=== PATIENT | male | born 1960 | race Caucasian/White ===

== ENCOUNTER 2021-01-09 19:39 | Emergency (ER) | payer OTHER, SELFPAY ==
--- NOTE | ~2021-01-09 | XR_ITS ---
XR elbow RT min 3V DATE: 01/09/2021 20:03 INDICATION: Right elbow injury. Olecranon pain. TECHNIQUE: 4 views COMPARISON: None FINDINGS: There is proximal displacement of avulsed fracture of large olecranon process dorsal spur, with overlying soft tissue swelling. IMPRESSION: Dorsally avulsed olecranon process spur fracture Reviewed, dictated and finalized at location A.
[2021-01-09 19:44] VITALS: BP 133/100; PULSE 67; RESP 16; TEMP 36.8; O2SAT 100
--- NOTE | 2021-01-09 19:56 | ED.UPPEXIN ---
HPI - Extremity Injury (Upper) General Chief Complaint: Extremity Injury, Upper Stated Complaint: right elbow injury Time Seen by Provider: 01/09/21 19:48 History of Present Illness HPI narrative: Right elbow injury. He reports that he was pulling hard when he heard a loud pop from his right elbow. He now has severe pain at the insertion of the triceps tendon. Exacerbated by any movement, extension is worse. No weakness, numbness, wound. Related Data Home Medications Medication Instructions Recorded Confirmed rizatriptan 10 mg tablet See Rx Instructions PO .COMPLEX 02/09/20 Allergies Allergy/AdvReac Type Severity Reaction Status Date / Time Penicillins AdvReac Severe Unknown Verified 12/20/20 11:08 Review of Systems Review of Systems: All systems reviewed & are unremarkable except as noted in HPI and below Constitutional: Constitutional: Denies fever(s) Cardiovascular: Cardiovascular: Denies chest pain Respiratory: Respiratory: Denies dyspnea Musculoskeletal: Musculoskeletal: Denies back pain Neurologic: Denies numbness and Denies weakness PMFSH Past Medical History Medical History Hyperlipidemia Hypertension Migraine Thyroid cancer Surgical History Surgical History H/O thyroidectomy History of lumbar laminectomy Hx of left inguinal hernia repair Social History Social History Smoking status: Never smoker Alcohol intake: current Exam Const: General: healthy appearing, no acute distress and alert Orientation/consciousness: patient oriented x3 HENMT: Head: normal to inspection Neck: Neck: normal visual inspection and no lymphadenopathy Chest: Chest palpation & inspection: no tenderness Resp: Effort & Inspection: normal respiratory effort Cardio: Jugular venous distension: no JVD Other: 2 + right radial Skin: General skin exam: normal color Wounds: no wounds Neuro: General: patient oriented x3, moves all extremities and no focal motor deficits Speech: normal speech Extrem: General: no edema Other: swelling and possible bony deformity over insertion of right triceps tendon Psych: Appearance: well kempt Affect: normal affect Course Vital Signs Vital signs: Vital Signs Temperature 36.8 C 01/09/21 19:44 Pulse Rate 67 01/09/21 19:44 Respiratory Rate 16 01/09/21 19:44 Blood Pressure 133/100 H 01/09/21 19:44 Pulse Oximetry 100 01/09/21 19:44 Temperature 36.7 C 01/09/21 20:40 Pulse Rate 80 01/09/21 20:40 Respiratory Rate 20 01/09/21 20:40 Blood Pressure 122/84 01/09/21 20:40 Pulse Oximetry 98 01/09/21 20:40 MDM - Extremity Injury (Upper) MDM Narrative Medical decision making narrative: Fracture of olecranon process spur. Treatment will be symptomatic. PCP follow-up should be sufficient. Medical Records Attestation: I reviewed the patient's medical records. Imaging Data Radiologist's impression: ITS Impressions Elbow X-Ray 01/09/21 20:05 IMPRESSION: Dorsally avulsed olecranon process spur fracture Discharge Plan Discharge Clinical Impression: Fracture of olecranon process, right, closed Qualifiers: Encounter type: initial encounter Qualified Code(s): S52.021A - Displaced fracture of olecranon process without intraarticular extension of right ulna, initial encounter for closed fracture Patient Disposition: Home, Self-Care Condition: Stable Instructions: Elbow Fracture (ED) Prescriptions: New hydrocodone-acetaminophen 5-325 mg tablet 1 tablet PO Q6H PRN (Reason: pain) Qty: 14 RF: 0 hydrocodone-acetaminophen 5-325 mg tablet 1 tablet PO Q6H PRN (Reason: pain) Qty: 14 RF: 0 No Action rizatriptan 10 mg tablet See Rx Instructions PO .COMPLEX RF: 0 levothyroxine 175 mcg capsule 175 mcg PO DAILY Qty: 90 RF: 2
[2021-01-09] MEDS: HYDROcodone/acetaminophen (*CRX) 5-325 MG TABLET 1 TAB PO (20:09)
[2021-01-09] MEDS: IBUPROFEN 600 MG TABLET PO (20:09)
[2021-01-09 20:40] VITALS: BP 122/84; PULSE 80; RESP 20; TEMP 36.7; O2SAT 98
== END 2021-01-09 20:41 | disposition home or self-care (01) ==
PROVIDERS: Emergency Provider Emergency Medicine; PCP Family Medicine
DX: S52.021A Displaced fracture of olecranon process without intraarticular extension of right ulna, initial encounter for closed fracture (principal); E78.5 Hyperlipidemia, unspecified; I10 Essential (primary) hypertension; Z85.850 Personal history of malignant neoplasm of thyroid; E89.0 Postprocedural hypothyroidism; X50.9XXA Other and unspecified overexertion or strenuous movements or postures, initial encounter
CPT/HCPCS: 73080; 99283; A4565; A9270

== ENCOUNTER 2021-01-10 12:21 | Emergency (ER) | payer OTHER, SELFPAY ==
[2021-01-10 12:57] VITALS: BP 148/96; PULSE 71; RESP 16; TEMP 36.4; O2SAT 99
--- NOTE | 2021-01-10 14:09 | PC.NURSE ---
Patient states his PCP is able to get him a work note today and is leaving. Patient educated to return to ED if symptoms worsen.
== END 2021-01-10 14:09 | disposition left against medical advice (07) ==
PROVIDERS: PCP Family Medicine
DX: Z53.21 Procedure and treatment not carried out due to patient leaving prior to being seen by health care provider (principal)
CPT/HCPCS: 99199

== ENCOUNTER 2021-01-22 01:33 | Day surgery (SDC) | payer OTHER, SELFPAY ==
[2021-01-21 14:06] VITALS: BMI 23.6
[2021-01-22] VITALS (7 sets, daily range): BP systolic 92–134; BP diastolic 62–87; PULSE 55–69; RESP 9–16; TEMP 36.4; O2SAT 98–100
--- NOTE | 2021-01-22 05:59 | ECG_ITS ---
Measurements Intervals [place] Rate: 55 P: 51 ME: 177 QRS: 47 QRSD: 91 T: 63 QT: 404 QTc: 388 Interpretive Statements SINUS BRADYCARDIA BORDERLINE ECG Electronically Signed On 01-22-2021 8:29:02 CDT by Oral Chambers D.O.
--- NOTE | 2021-01-22 07:22 | WPDANESEPPF ---
Anes - Initial Pre Proc Eval Procedure: Operation Date: 01/22/21 08:00 Proposed Procedures p Open Triceps Right Tendon Repair - Arnoldo Arguelles MD Date/Time: 01/22/21 07:22 Surgeon: Arnoldo Arguelles MD Pre Op Diagnosis: Right triceps tendon Rupture Patient Data Age: 61 Gender: M Height: 1.83 m Weight: 79 kg Allergies Allergy/AdvReac Type Severity Reaction Status Date / Time Penicillins Allergy Severe IRRITATION/SWELLING Verified 01/21/21 13:58 IN THROAT Home Medications Medication Instructions Recorded Confirmed Type rizatriptan 10 mg tablet See Rx Instructions PO .COMPLEX 02/09/20 01/21/21 History meloxicam 15 mg tablet 15 mg PO DAILY #30 tablet 11/30/20 01/21/21 Rx triamterene 75 1 tablet PO QAM #45 tablet 12/02/20 01/21/21 Rx mg-hydrochlorothiazide 50 mg tablet montelukast 10 mg tablet 10 mg PO DAILY #30 tablet 12/24/20 01/21/21 Rx oxycodone-acetaminophen 5 mg-325 1 - 2 tablet PO Q4-6H PRN #30 01/15/21 01/21/21 Rx mg tablet tablet buspirone 10 mg PO TID 01/21/21 01/21/21 History levothyroxine 175 mcg PO QAM 01/21/21 01/21/21 History propranolol 80 mg PO BID 01/21/21 01/21/21 History simvastatin 40 mg PO HS 01/21/21 01/21/21 History Patient hx anesthesia problems: none Family hx anesthesia problems: none [facility] Past Medical History Medical History Hyperlipidemia Hypertension Migraine Thyroid cancer Surgical History Surgical History H/O thyroidectomy History of lumbar laminectomy Hx of left inguinal hernia repair Family History Family History (Updated 01/17/21 @ 08:43 by Kathrine Gaviria) Father Heart disease COPD (chronic obstructive pulmonary disease) Mother Age related osteoporosis Grandparent Cerebrovascular accident Grandparent Heart disease Social History Social History (Updated 01/17/21 @ 08:44 by Kathrine Gaviria) Smoking status: Never smoker Alcohol intake: current Drinks per week: 3 Substance use: never Living arrangements: with family Additional living arrangements comments: Spiritual care concerns: No Anes - Eval Final PreProcedure Day of Procedure 01/22/21 07:22 Patient weight: overweight Heart: regular rate and rhythm Lungs: clear to auscultation Airway: Mallampati scale Neurological: alert and oriented ASA classification: III Emergent: no Anesthetic plan: proceed Anesthesia type and monitoring: general ETT and standard monitoring Informed Consent: The patient's anesthetic plan and its attendant risks and benefits were discussed with the patient/family/POA. Questions were solicited and answers provided to the satisfaction of the patient/family/POA.
[2021-01-22] MEDS: ACETAMINOPHEN 500 MG TABLET 1000 MG PO (07:27)
[2021-01-22] MEDS: KETOROLAC 15 MG/ML VIAL (*BKC) IV PUSH (07:28)
[2021-01-22] MEDS: LACTATED RINGERS 1,000 ML 30 ML IV CONT ×2 (07:30→09:21)
--- NOTE | 2021-01-22 07:37 | WPDHPUPDATE1 ---
History and Physical Update Update Date/Time: 01/22/21 07:37 PLAN: Proceed with open right triceps tendon repair. History and Physical has been reviewed, including an updated exam of the patient. There are NO changes in the patient's condition. Risks, benefits, and alternatives have been discussed and questions answered. Patient agrees to proceed with procedure.
[2021-01-22] MEDS: ceFAZolin 2 GM/D5W 50 ML 2 GM/50 ML BAG IVPB (07:49)
[2021-01-22 07:53] LABS: Anion Gap 7 mmol/L (8-16); Blood Urea Nitrogen 25 mg/dL (9-20); Calcium 8.8 mg/dL (8.4-10.2); Carbon Dioxide 26 mmol/L (22-30); Chloride 106 mmol/L (98-107); Estimated CRCL calculation 82 ml/min; Estimated Glomerular Filt Rate > 60; Glucose 86 mg/dL (75-110); Sodium 139 mmol/L (137-145)
[2021-01-22] MEDS: BUPIVACAINE HCL 0.5% PF 30 ML VIAL INFILTRATE (08:25)
--- NOTE | 2021-01-22 09:06 | W.PM.PROC2 ---
Procedure Note - Detailed Date of Procedure 01/22/21 Pre-op Diagnosis Right triceps tendon Rupture Post-op Diagnosis same Procedure Performed Triceps tendon repair, right elbow. Surgeon Arnoldo Arguelles MD Anesthesia general Indications Acute traumatic rupture. Findings Large bone fragment. Amenable for screw fixation, with suture augmentation through bone tunnels. Rigid, anatomic fixation. Description of Procedure Preoperative antibiotics were given. General anesthetic administered. The patient was carefully placed in the lateral decubitus position. The arm was prepped and draped in the usual sterile fashion. Well-padded tourniquet high on the arm. The limb was exsanguinated the tourniquet inflated to 250 mmHg. A longitudinal incision was created over the posterior olecranon slightly lateral. The area of triceps disruption was dissected deep to the bursa. The trever T9 and subcutaneous tissue layers were carefully preserved for later repair. A large fragment of distal olecranon bone remained attached to the central tendon. Near anatomic reduction was possible. The bony surfaces were prepared for repair. Crossing drill tunnels were created and the suture limbs will then. The 2. FiberWire was brought up the medial side with a Krackow stitch and down the lateral side. The tendon was reduced. Bone fragment was anatomically positioned and a K-wire placed across the fracture site. Care was taken to avoid the tunnels. The partially-threaded cannulated screw 4.0 mm was drilled and placed over the guidewire. Excellent compression was obtained. The suture repair was finalized with nice supportive compression of the tendon medially and laterally. The tourniquet was released. Meticulous hemostasis obtained. The deep layers were carefully repaired with absorbable suture. Running 4 Monocryl suture was used subcuticular. Steri-Strips applied. Posterior splint with padding and light compression was placed. The patient was extubated and brought to the recovery room in stable condition. There were no complications. Implants Synthes 4.0 cannulated screw, 32 mm. Estimated Blood Loss 5 Tourniquet Time 48 Pathology none sent Complications No immediate complications Condition stable Disposition PACU
--- NOTE | 2021-01-22 10:15 | SUR.PHASEII ---
RN called Dr. Arguelles's office to request the discharge order.
--- NOTE | 2021-01-22 10:22 | SUR.PHASEII ---
Spoke w/ Pharmacy and prescription for Percocet was filled on 01/15/21. RN told patient to call Dr. Arguelles's office for more medicine if needed when gets close to running out.
[2021-01-22] MEDS: oxyCODONE HCL (*CRX) 5 MG TAB IR PO (10:30)
--- NOTE | 2021-01-22 11:18 | SUR.PHASEII ---
When patient used the bathroom at discharge he heard his RIGHT arm pop. He said it didn't hurt anymore than it did previously. RN will make Dr. Arguelles's office aware.
== END 2021-01-22 11:12 | disposition home or self-care (01) ==
PROVIDERS: Anesthesiology; PCP Family Medicine; Visit Provider Orthopaedic Surgery
PROC: (CPT 24341; principal; 2021-01-22 08:00)
DX: S46.311A Strain of muscle, fascia and tendon of triceps, right arm, initial encounter (principal); I10 Essential (primary) hypertension; E78.5 Hyperlipidemia, unspecified; E89.0 Postprocedural hypothyroidism; Z85.850 Personal history of malignant neoplasm of thyroid; X58.XXXA Exposure to other specified factors, initial encounter
CPT/HCPCS: 24342; 36415; 80048; 93005; A9270; C1713; C1769; J0690; J1100; J1885; J2250; J2370; J2405; J2704; J3010; J7120

== ENCOUNTER 2021-01-25 12:40 | Emergency (ER) | payer OTHER, SELFPAY ==
--- NOTE | ~2021-01-25 | XR_ITS ---
EXAMINATION: XR chest 2V DATE: 01/25/2021 14:02 INDICATION: Cough and shortness of breath TECHNIQUE: PA and lateral views of the chest are obtained. COMPARISON: None available FINDINGS: The lungs are free of acute opacities. There is no pleural effusion or pneumothorax. The ca rdiomediastinal silhouette is normal. There is mild thoracic spondylosis. IMPRESSION: 1. No acute cardiopulmonary abnormality. Reviewed, dictated and finalized at location A.
[2021-01-25 12:44] VITALS: BP 147/83; PULSE 63; RESP 20; TEMP 36.6; O2SAT 100
[2021-01-25 13:42] VITALS: BP 153/84; PULSE 62; RESP 22; TEMP 36.3; O2SAT 98
[2021-01-25 13:43] VITALS: PULSE 67; RESP 12
--- NOTE | 2021-01-25 13:53 | ECG_ITS ---
Measurements Intervals [place] Rate: 67 P: 27 FL: 156 QRS: 21 QRSD: 88 T: 24 QT: 377 QTc: 401 Interpretive Statements SINUS RHYTHM EARLY PRECORDIAL R/S TRANSITION BASELINE ARTIFACT- I, II, III, AVR, AVL, AVF BORDERLINE ECG Electronically Signed On 01-25-2021 20:55:18 CDT by Oral Chambers D.O.
--- NOTE | 2021-01-25 13:54 | ED.GENADULT ---
HPI - General Adult General Chief complaint: Unspecified Stated complaint: increased urination, hot flashes Time Seen by Provider: 01/25/21 13:39 Source: patient Mode of arrival: ambulatory Limitations: no limitations History of Present Illness HPI narrative: Patient is a 61-year-old male complaining of I do not feel well, I feel anxious, sometimes I cannot take a deep breath, woke up this morning and I cannot sit still , also complaining of increased urinary frequency and chills x1 day. 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 Patient denies any headache, dizziness, chest pain, shortness of breath, abdominal pain, nausea, vomiting, diarrhea or fever. Related Data Home Medications Medication Instructions Recorded Confirmed rizatriptan 10 mg tablet See Rx Instructions PO .COMPLEX 02/09/20 01/22/21 buspirone 10 mg PO TID 01/21/21 01/22/21 levothyroxine 175 mcg PO QAM 01/21/21 01/22/21 propranolol 80 mg PO BID 01/21/21 01/22/21 simvastatin 40 mg PO HS 01/21/21 01/22/21 Allergies Allergy/AdvReac Type Severity Reaction Status Date / Time Penicillins Allergy Severe IRRITATION/SWELLING Verified 01/22/21 08:23 IN THROAT Review of Systems Review of Systems: All systems reviewed & are unremarkable except as noted in HPI and below Constitutional: Constitutional: Denies body ache(s), Denies excessive sweating, Denies fatigue, Denies fever(s), Denies headache(s), Denies lethargy, Denies malaise, Denies weakness and Denies weight loss Eyes: Eyes: Denies blurry vision, Denies change in vision and Denies loss of vision ENT: Denies dizziness, Denies ear discharge, Denies headache(s), Denies lip swelling, Denies epistaxis, Denies nasal congestion, Denies neck pain, Denies throat swelling and Denies tongue swelling Cardiovascular: Cardiovascular: Denies chest pain, Denies chest pain at rest, Denies chest pain with activity, Denies diaphoresis, Denies rapid heart rate, Denies edema, Denies irregular heart rhythm, Denies lightheadedness, Denies palpitations, Denies dyspnea and Denies dyspnea on exertion Respiratory: Respiratory: Denies chest congestion, Denies cough, Denies hemoptysis, Denies dyspnea and Denies dyspnea on exertion Gastrointestinal: Gastrointestinal: Denies abdominal pain, Denies melena, Denies hematochezia, Denies diarrhea, Denies nausea, Denies vomiting and Denies hematemesis Musculoskeletal: Musculoskeletal: Denies abnormal gait, Denies deformity, Denies joint swelling, Denies limited range of motion, Denies neck pain and Denies numbness Neurologic: Denies Abnormal speech present, Denies abnormal gait, Denies confusion, Denies dizziness, Denies headache(s), Denies focal weakness, Denies loss of vision, Denies numbness, Denies Other visual disturbances, Denies Sensory deficit (Neuro) and Denies weakness Psychiatric: Psychiatric: Denies confusion, Denies depression, Denies auditory hallucinations, Denies homicidal ideation and Denies suicidal ideation Endocrine: Endocrine: Denies cold intolerance, Denies excessive sweating, Denies fatigue, Denies heat intolerance and Denies palpitations Hematologic/Lymphatic: Hematologic/Lymphatic: Denies easy bleeding and Denies easy bruising Allergic/Immunologic: Allergic/Immunologic: Denies lip swelling, Denies throat swelling and Denies tongue swelling PMFSH Past Medical History Medical History Hyperlipidemia Hypertension Migraine Thyroid cancer Surgical History Surgical History H/O thyroidectomy History of lumbar laminectomy Hx of left inguinal hernia repair Family History Family History Father Heart disease COPD (chronic obstructive pulmonary disease) Mother Age related osteoporosis Grandparent Cerebrovascular accident
[2021-01-25 14:39] VITALS: BP 133/82; PULSE 64; RESP 14; TEMP 36.4; O2SAT 99
[2021-01-25] MEDS: LORazepam INJ (*CRX) 2 MG/ML VIAL 1 MG IV PUSH (15:00)
[2021-01-25 15:01] LABS: Basophils Percent Auto 0.2 % (0.2-1.2); Eosinophils Absolute Auto 0.1 K/mm3 (0-0.3); Eosinophils Percent Auto 0.7 % (0-4.4); Hematocrit 43.6 % (42.0-52.0); Hemoglobin 15.2 g/dL (14.0-18.0); Immature Granulocyte Absolute 0.05 K/mm3 (0.00-0.031); Immature Granulocyte Percent A 0.5 % (0-0.5); Lymphocytes Absolute Auto 1.07 K/mm3 (0.9-3.2); Lymphocytes Percent Auto 10.4 % (18.3-44.2); Mean Corpuscular HGB Conc 34.9 g/dl (32-36); Mean Corpuscular Hemoglobin 33.4 pg (26-34); Mean Corpuscular Volume 95.8 fl (80-100); Mean Platelet Volume 10.1 fl (7.4-10.4); Monocytes Absolute Auto 0.5 K/mm3 (0.1-0.6); Monocytes Percent Auto 5.3 % (2.6-8.5); Neutrophils Absolute Auto 8.5 K/mm3 (1.3-6.7); Neutrophils Percent Auto 82.9 % (45.5-73.1); Platelet Count Result 194 k/mm3 (150-375); Red Blood Count 4.55 M/mm3 (4.6-6.20); Red Cell Distribution Width 12.2 % (11.5-14.5); White Blood Count 10.3 K/mm3 (4.5-10.0)
[2021-01-25 15:05] LABS: Add Urine Microscopic? YES; Appearance Urine Clear (Clear); Bilirubin Urine Negative (Negative); Blood Urine Negative (Negative); Color Urine Straw (Yellow); Glucose Urine UA Negative (Negative); Ketones Urine Trace mg/dL (Negative); Leukocyte Esterase Ur Negative LEU/UL (Negative); Nitrate Urine Negative (Negative); Protein Urine Negative (Negative); RBC Urine 0-2 /hpf (0-2); Urobilinogen Urine Negative mg/dL (<2.0); WBC Urine 0-3 /hpf
[2021-01-25 15:10] LABS: Anion Gap 9 mmol/L (8-16); Blood Urea Nitrogen 15 mg/dL (9-20); Calcium 9.6 mg/dL (8.4-10.2); Carbon Dioxide 27 mmol/L (22-30); Chloride 102 mmol/L (98-107); Estimated CRCL calculation 91 ml/min; Estimated Glomerular Filt Rate > 60; Glucose 103 mg/dL (75-110); Potassium 4.2 mmol/L (3.4-5.0); Sodium 138 mmol/L (137-145)
[2021-01-25 15:22] LABS: Troponin I < 0.012 ng/mL (0.000-0.034)
[2021-01-25 15:37] LABS: D Dimer 0.27 ug/mL (<0.48)
[2021-01-25 16:43] VITALS: BP 133/87; PULSE 65; RESP 19; TEMP 36.7; O2SAT 96
[2021-01-25 17:15] VITALS: BP 118/85; PULSE 67; RESP 11; TEMP 36.6; O2SAT 97
== END 2021-01-25 17:33 | disposition home or self-care (01) ==
PROVIDERS: Emergency Provider Emergency Medicine; PCP Family Medicine
DX: F41.9 Anxiety disorder, unspecified (principal); I10 Essential (primary) hypertension; E78.5 Hyperlipidemia, unspecified; Z85.850 Personal history of malignant neoplasm of thyroid
CPT/HCPCS: 36415; 71046; 80048; 81001; 84484; 85025; 85380; 93005; 96374; 99284; J2060

== ENCOUNTER 2022-06-18 16:10 | Emergency (ER) | payer OTHER, SELFPAY ==
[2022-06-18 16:16] VITALS: BP 152/91; PULSE 60; RESP 16; TEMP 36.3; O2SAT 99
[2022-06-18] MEDS: HYDROcodone/acetaminophen (*CRX) 5-325 MG TABLET 1 TAB PO (17:06)
[2022-06-18] MEDS: CLINDAMYCIN HCL 150 MG CAP 450 MG PO (17:06)
--- NOTE | 2022-06-18 17:13 | ED.DENTAL ---
HPI - Dental/Oral General Chief complaint: Dental/Oral Stated complaint: dental pain Time Seen by Provider: 06/18/22 16:29 Source: patient Mode of arrival: ambulatory Limitations: no limitations History of Present Illness HPI Narrative: 62-year-old male presents today with complaints of left tooth pain that started yesterday. Patient states the pain is progressively gotten worse and he has tried Tylenol without any relief. Patient on meloxicam he cannot use any nonsteroidal anti-inflammatories. Patient denies any fever, body aches, chills. Patient states he is able to drink fluids without difficulty. Patient is able to eat chewing on the right side. Patient states ever since he had a tooth removed a couple years ago he has intermittently had issues with his left side. No swelling noted to the jaw. Related Data Home Medications Medication Instructions Recorded Confirmed fexofenadine 60 mg tablet (Franca 60 mg PO Q12H 06/25/21 01/27/22 Allergy) Allergies Allergy/AdvReac Type Severity Reaction Status Date / Time Penicillins Allergy Severe IRRITATION/SWELLING Verified 01/27/22 10:29 IN THROAT Review of Systems Review of Systems: CONSTITUTIONAL: Denies fever, chills, or sweats. EYES: Denies visual changes, redness, or discharge. ENT: Left lower pain. denies rhinorrhea, congestion, sore throat, or otalgia. CARDIOVASCULAR: Denies chest pain, palpitations, or edema. RESPIRATORY: Denies cough or dyspnea. GASTROINTESTINAL: Denies abdominal pain, nausea, vomiting, or diarrhea. PSYCHIATRIC: Denies anxiety or depression. [facility] Past Medical History Medical History Hyperlipidemia Hypertension Migraine Thyroid cancer Surgical History Surgical History H/O thyroidectomy History of lumbar laminectomy Hx of left inguinal hernia repair Family History Family History Father Heart disease COPD (chronic obstructive pulmonary disease) Mother Age related osteoporosis Grandparent Cerebrovascular accident Grandparent Heart disease Social History Social History Smoking status: Never smoker Alcohol intake: current Drinks per week: 3 Alcohol use details: 3-5 BEERS A WEEK Substance use: never Substance use type: does not use Additional living arrangements comments: Gender identity (if verbalized by the patient): Male Spiritual care concerns: No Exam Narrative: GENERAL: Well-appearing, well-nourished, and in no acute distress. HEAD: Normocephalic, atraumatic. EYES: PERRLA and EOMI. ENT: Nares clear, no rhinorrhea or epistaxis. Mucous membranes moist. Oropharynx without tonsillar hypertrophy exudate or other lesions. Bilateral TMs pearly abad nonbulging. No trismus or Ludewig's angina. No abscess noted, no erythema noted. Tenderness to left lower gums where third molar would be. NECK: Supple. No adenopathy or masses. No carotid bruits or JVD CHEST: Clear to auscultation. No respiratory distress. No wheezes rales or rhonchi HEART: Regular rate and rhythm. No murmur heard. Normal peripheral pulses. Course Vital Signs Vital signs: Vital Signs Temperature 97.4 F L 06/18/22 16:16 Pulse Rate 60 06/18/22 16:16 Respiratory Rate 16 06/18/22 16:16 Blood Pressure 152/91 H 06/18/22 16:16 Pulse Oximetry 99 06/18/22 16:16 Temperature 97.4 F L 06/18/22 16:16 Pulse Rate 60 06/18/22 16:16 Respiratory Rate 16 06/18/22 16:16 Blood Pressure 152/91 H 06/18/22 16:16 Pulse Oximetry 99 06/18/22 16:16 MDM - Dental/Oral Differential Diagnosis Differential diagnosis: Likely gingival abscess, dental caries, toothache and dental abscess Medical Records Attestation: I reviewed the patient's medical records. Discharge Plan Discharge Clini
== END 2022-06-18 17:14 | disposition home or self-care (01) ==
PROVIDERS: Emergency Provider Nurse Practitioner Family; PCP Family Medicine
DX: K02.9 Dental caries, unspecified (principal); E78.5 Hyperlipidemia, unspecified; I10 Essential (primary) hypertension; E89.0 Postprocedural hypothyroidism; Z85.850 Personal history of malignant neoplasm of thyroid
CPT/HCPCS: 99283; A9270

== ENCOUNTER 2022-06-18 21:16 | Emergency (ER) | payer OTHER, SELFPAY ==
--- NOTE | ~2022-06-18 | CT_ITS ---
EXAMINATION: CT soft tissue neck w con DATE: 06/18/2022 23:22 INDICATION: Left mandibular molar pain. Assess for abscess. TECHNIQUE: Computed tomography (CT) of the neck was performed with 75 mL Omnipaque-350 intravenous co ntrast. Automated exposure control and iterative reconstruction technique were employed. The dose-jurgen gth product was 650.76 mGy-cm. COMPARISON: None FINDINGS: Orbits are normal. The paranasal sinuses are clear. Mastoid air cells and middle ear cavities are shital ar. Mild mucosal thickening and small mucous retention cyst in the bilateral maxillary sinuses. Subma ndibular and parotid glands are symmetric. Thyroid gland is either atrophic or absent. There are dent al caries of the unerupted posterior most bilateral mandibular molars. This is more advanced on the l eft where there is also a small amount of surrounding lucency in the bone. No evident erosions to the peripheral cortex of the bone or associated soft tissue abscess. There are scattered normal-sized ly mph nodes in the neck, no lymphadenopathy. No masses identified. Small amount of nonhemodynamically significant atherosclerotic calcification at the left carotid bifurcation.. Airway is unremarkable. S uperior mediastinum is unremarkable. Visualized portions of the upper lungs are clear. Moderate cervi gia spondylosis. IMPRESSION: 1. Dental caries of the unerupted bilateral posterior most mandibular molars which is more prominent on the left with some surrounding lucency in the bone but no erosion to the more peripheral cortex or associated soft tissue abscess. Recommend dental referral. 2. Atrophic versus absent thyroid gland. Reviewed, dictated and finalized at location A. [employer] IMPRESSION: 1. Dental caries of the unerupted bilateral posterior most mandibular molars wh ich is more prominent on the left with some surrounding lucency in the bone but no erosion to the more peripheral cortex or associated soft tissue abscess. Re commend dental referral. 2. Atrophic versus absent thyroid gland.
[2022-06-18 21:20] VITALS: BP 164/98; PULSE 65; RESP 20; TEMP 36.7; O2SAT 98
--- NOTE | 2022-06-18 22:20 | ED.DENTAL ---
HPI - Dental/Oral General Chief complaint: Dental/Oral Stated complaint: jaw pain Time Seen by Provider: 06/18/22 21:50 Source: patient and old records reviewed Mode of arrival: ambulatory Limitations: no limitations History of Present Illness HPI Narrative: Patient is a 62 y/o male who presents to the ED with c/o L lower dental pain. Patient reports he previously had his lower posterior molars extracted. He has a chip to his left upper posterior molar and reports when he bites down hard, he occasionally irritates the lower molar space. He reports having pain for the last day and a half. He was seen in the ED earlier today at which point he was prescribed clindamycin, [place]. He was given a dose of each prior to discharge and has not taken anything further. Pain became increasingly worse tonight and began extending into his jaw and left ear, which prompted his presentation. No fevers. No difficulty swallowing, difficulty breathing, chest pain, nausea, vomiting. Teeth map: 1. previous molar extraction, pain/swelling surrounding Related Data Home Medications Medication Instructions Recorded Confirmed fexofenadine 60 mg tablet (Franca 60 mg PO Q12H 06/25/21 01/27/22 Allergy) Allergies Allergy/AdvReac Type Severity Reaction Status Date / Time Penicillins Allergy Severe IRRITATION/SWELLING Verified 06/18/22 21:32 IN THROAT Review of Systems Review of Systems: CONSTITUTIONAL: Denies fever, chills, or sweats. ENT: Reports left lower dental pain, extending into left ear and jaw. Denies rhinorrhea, congestion, sore throat, dysphagia. CARDIOVASCULAR: Denies chest pain. RESPIRATORY: Denies cough or dyspnea. GASTROINTESTINAL: Denies abdominal pain, nausea, vomiting. All systems reviewed & are unremarkable except as noted in HPI and below PMFSH Past Medical History Medical History Hyperlipidemia Hypertension Migraine Thyroid cancer Surgical History Surgical History H/O thyroidectomy History of lumbar laminectomy Hx of left inguinal hernia repair Family History Family History Father Heart disease COPD (chronic obstructive pulmonary disease) Mother Age related osteoporosis Grandparent Cerebrovascular accident Grandparent Heart disease Social History Social History Smoking status: Never smoker Alcohol intake: current Drinks per week: 3 Alcohol use details: 3-5 BEERS A WEEK Substance use: never Substance use type: does not use Additional living arrangements comments: Gender identity (if verbalized by the patient): Male Spiritual care concerns: No Exam Narrative: GENERAL: Well appearing, well-nourished, non-toxic, in no acute distress. HEAD: Normocephalic, atraumatic. ENT: Patient unable to refusing to open mouth wide due to discomfort. No trismus. No swelling to palate or floor of mouth. Tenderness diffusely to left lower posterior gumline, inner and outer surrounding posterior molar. Previous left lower posterior molar extraction. No focal abscess. No bleeding. No significant posterior pharynx erythema. No tonsillar hypertrophy or exudate. NECK: Supple. No adenopathy, no masses. RESPIRATORY: Airway patent, respirations nonlabored. Clear to auscultation bilaterally, no rales, rhonchi, wheezing. CARDIOVASCULAR: Regular rate and rhythm without murmurs, rubs, or gallops. Radial pulses 2+ and equal bilaterally. MUSCULOSKELETAL: Moves all extremities. Strength/ROM intact without gross deformities. SKIN: Warm, dry, normal color. No rashes. NEURO: A&O X3. Speech clear. Cranial nerves II-XII grossly intact. Steady gait. No ataxic movements. PSYCHIATRIC: Appropriate mood and affect. Normal interaction. Course Vital Signs Vital signs: Vital S
[2022-06-18] MEDS: ONDANSETRON INJ 4 MG/2 ML VIAL IV PUSH (22:36)
[2022-06-18] MEDS: MORPHINE SULFATE (*CRX) 4 MG/ML INJ IV PUSH (22:36)
[2022-06-18 22:41] LABS: Basophils Percent Auto 0.3 % (0.2-1.2); Eosinophils Absolute Auto 0.2 K/mm3 (0-0.3); Eosinophils Percent Auto 1.4 % (0-4.4); Hematocrit 48.7 % (42.0-52.0); Hemoglobin 16.9 g/dL (14.0-18.0); Immature Granulocyte Absolute 0.06 K/mm3 (0.00-0.031); Immature Granulocyte Percent A 0.5 % (0-0.5); Lymphocytes Absolute Auto 1.91 K/mm3 (0.9-3.2); Lymphocytes Percent Auto 14.6 % (18.3-44.2); Mean Corpuscular HGB Conc 34.7 g/dl (32-36); Mean Corpuscular Hemoglobin 33.6 pg (26-34); Mean Corpuscular Volume 96.8 fl (80-100); Mean Platelet Volume 9.9 fl (7.4-10.4); Monocytes Percent Auto 7.2 % (2.6-8.5); Platelet Count Result 225 k/mm3 (150-375); Red Blood Count 5.03 M/mm3 (4.6-6.20); Red Cell Distribution Width 12.4 % (11.5-14.5); White Blood Count 13.1 K/mm3 (4.5-10.0)
[2022-06-18 22:51] LABS: Alanine Aminotransferase 31 U/L (6-50); Albumin Level 4.7 g/dL (3.5-5.1); Alkaline Phosphatase 109 U/L (38-126); Anion Gap 9 mmol/L (8-16); Aspartate Amino Transferase 33 U/L (17-59); Bilirubin,Total 0.9 mg/dL (0.2-1.3); Blood Urea Nitrogen 25 mg/dL (9-20); Calcium 9.3 mg/dL (8.4-10.2); Carbon Dioxide 29 mmol/L (22-30); Chloride 99 mmol/L (98-107); Estimated CRCL calculation 62 ml/min; Estimated Glomerular Filt Rate > 60; Glucose 131 mg/dL (65-110); Potassium 4.2 mmol/L (3.4-5.0); Sodium 137 mmol/L (137-145)
[2022-06-18 23:06] VITALS: TEMP 36.7
[2022-06-18] MEDS: HYDROmorphone HCL INJ (*CRX) 1 MG/ML SYR 0.5 MG IV PUSH (23:45)
[2022-06-19] MEDS: HYDROmorphone HCL INJ (*CRX) 1 MG/ML SYR 0.5 MG IV PUSH (01:48)
[2022-06-19 01:53] VITALS: BP 133/77; PULSE 75; RESP 16; O2SAT 100
== END 2022-06-19 01:55 | disposition home or self-care (01) ==
PROVIDERS: Emergency Provider Physician Assistant; PCP Family Medicine
DX: K02.9 Dental caries, unspecified (principal); K03.81 Cracked tooth; E78.5 Hyperlipidemia, unspecified; I10 Essential (primary) hypertension; E89.0 Postprocedural hypothyroidism; Z85.850 Personal history of malignant neoplasm of thyroid
CPT/HCPCS: 36415; 70491; 80053; 85025; 96374; 96375; 99284; A9270; J1170; J2270; J2405; Q9967

== ENCOUNTER 2023-04-18 23:47 | Emergency (ER) | payer OTHER, SELFPAY ==
--- NOTE | ~2023-04-18 | XR_ITS ---
EXAMINATION: XR chest 2V DATE: 04/19/2023 00:11 INDICATION: Palpitations. TECHNIQUE: Frontal and lateral views of the chest were obtained. COMPARISON: Chest 2 views 01/25/2021 FINDINGS: There is no pneumonia, pleural effusion, or pneumothorax. The heart size is normal. IMPRESSION: 1. No acute cardiopulmonary disease. Reviewed, dictated and finalized at location A.
--- NOTE | 2023-04-18 23:51 | ECG_ITS ---
Measurements Intervals [place] Rate: 66 P: 41 ID: [id number] QRS: 39 QRSD: 101 T: 63 QT: 374 QTc: 393 Interpretive Statements SINUS RHYTHM BORDERLINE ST ABNORMALITY- DIFFUSE LEADS BORDERLINE ECG COMPARED TO ECG 01/25/2021 15:09:12 NO SIGNIFICANT CHANGES Electronically Signed On 04-19-2023 6:34:12 CDT by Oral Chambers D.O.
[2023-04-18 23:52] VITALS: BP 146/84; PULSE 70; RESP 16; TEMP 36.8; O2SAT 97
[2023-04-19] VITALS (7 sets, daily range): BP systolic 124; BP diastolic 64–81; PULSE 65–74; RESP 13–20; O2SAT 95–99
--- NOTE | 2023-04-19 00:03 | ED.ARRPALP ---
HPI - Arrhythmia/Palpitations General Chief Complaint: Arrhythmia/Palpitations Stated Complaint: irregular heartbeat Time Seen by Provider: 04/19/23 00:03 History of Present Illness HPI narrative: Patient states that earlier today, he felt like his heart was skipping beats, he has no history of heart problems and denies any chest pain or difficulty breathing, nausea or vomiting. Related Data Home Medications Medication Instructions Recorded Confirmed fexofenadine 60 mg tablet (Franca 60 mg PO Q12H 06/25/21 01/18/23 Allergy) finasteride 5 mg tablet mg 04/18/23 tamsulosin 0.4 mg capsule mg PO 04/18/23 Allergies Allergy/AdvReac Type Severity Reaction Status Date / Time Penicillins Allergy Severe IRRITATION/SWELLING Verified 04/18/23 23:56 IN THROAT Review of Systems Review of Systems: CONST: No fever. HEENT: No sore throat C/V: No chest pain; reports skipped beats sensation RESP: No trouble breathing GI: No nausea or vomiting : No flank pain M/S: No joint pain. SKIN: No rash. NEURO: [No headache or focal numbness or weakness] PSYCH: [No depression] [facility] Past Medical History Medical History Hyperlipidemia Hypertension Migraine Thyroid cancer Surgical History Surgical History H/O thyroidectomy History of lumbar laminectomy Hx of left inguinal hernia repair Family History Family History Father Heart disease COPD (chronic obstructive pulmonary disease) Mother Age related osteoporosis Grandparent Cerebrovascular accident Grandparent Heart disease Social History Social History (Updated 01/18/23 @ 15:56 by Mora Milan CMA) Smoking status: Never smoker Second hand tobacco smoke exposure: No Alcohol intake: current Drinks per week: 3 Alcohol use details: 3-5 BEERS A WEEK Substance use: never Substance use type: does not use Lack of Transportation: No Lack of Food: Sometimes True Current Housing: I Have Housing Concerned About Future Housing: No Difficulty Paying Gas/Electric Bills: No Difficulty Paying for Meds: YES Currently Unemployed: Decline to Answer Education: Decline to Answer Difficulty w/ Childcare or Family Care: Decline to Answer Living arrangements: with family Additional living arrangements comments: Occupation/Education: occupation Gender identity (if verbalized by the patient): Male Sexual Orientation (if Verbalized by the Patient): Straight or Heterosexual Spiritual care concerns: No Agree to blood products: Yes Exam Narrative: EXAMINATION OF ORGAN SYSTEMS/BODY AREAS: Constitutional: Vital signs per nursing GENERAL:[No acute distress, non-toxic appearing.] HEAD: Normal with no signs of head trauma. EYES: EOMI, conjunctiva normal ENT: Hearing grossly intact LUNGS: Nonlabored breathing. HEART: Regular rate and rhythm ABD: [Soft], [nontender to palpation] EXT: Normal range of motion SKIN: [No rashes or lesions.] NEURO: [Alert and oriented x 3. No gross focal sensory or strength deficits.] PSYCH: Normal affect Course Vital Signs Vital signs: Vital Signs Temperature 98.3 F 04/18/23 23:52 Pulse Rate 70 04/18/23 23:52 Respiratory Rate 16 04/18/23 23:52 Blood Pressure 146/84 H 04/18/23 23:52 Pulse Oximetry 97 04/18/23 23:52 Oxygen Delivery Room Air 04/18/23 23:52 Temperature 98.3 F 04/18/23 23:52 Pulse Rate 70 04/19/23 00:59 Respiratory Rate 19 04/19/23 00:59 Blood Pressure 124/64 04/19/23 00:59 Pulse Oximetry 99 04/19/23 00:59 Oxygen Delivery Room Air 04/18/23 23:52 MDM - Arrhythmia/Palpitations MDM Narrative Medical decision making narrative: 63-year-old male presenting with sensation of missed beats. VSS, EKG showing NSR, cardiac w/u initiated. I did re-
[2023-04-19 00:19] LABS: Alanine Aminotransferase 27 U/L (6-50); Alkaline Phosphatase 90 U/L (38-126); Anion Gap 8 mmol/L (8-16); Aspartate Amino Transferase 35 U/L (17-59); Bilirubin,Total 0.6 mg/dL (0.2-1.3); Blood Urea Nitrogen 28 mg/dL (9-20); Carbon Dioxide 25 mmol/L (22-30); Chloride 104 mmol/L (98-107); Estimated CRCL calculation 61 ml/min; Estimated Glomerular Filt Rate > 60; Glucose 110 mg/dL (65-110); Lipase 136 U/L (23-300); Potassium 3.4 mmol/L (3.4-5.0); Sodium 137 mmol/L (137-145)
[2023-04-19 00:20] LABS: Basophils Percent Auto 0.4 % (0.2-1.2); Eosinophils Absolute Auto 0.2 K/mm3 (0-0.3); Eosinophils Percent Auto 3.1 % (0-4.4); Hemoglobin 15.2 g/dL (14.0-18.0); Immature Granulocyte Absolute 0.02 K/mm3 (0.00-0.031); Immature Granulocyte Percent A 0.3 % (0-0.5); Lymphocytes Absolute Auto 2.39 K/mm3 (0.9-3.2); Lymphocytes Percent Auto 35.6 % (18.3-44.2); Mean Corpuscular HGB Conc 34.5 g/dl (32-36); Mean Corpuscular Hemoglobin 33.6 pg (26-34); Mean Corpuscular Volume 97.1 fl (80-100); Mean Platelet Volume 10.6 fl (7.4-10.4); Monocytes Absolute Auto 0.7 K/mm3 (0.1-0.6); Monocytes Percent Auto 10.3 % (2.6-8.5); Neutrophils Absolute Auto 3.4 K/mm3 (1.3-6.7); Neutrophils Percent Auto 50.3 % (45.5-73.1); Platelet Count Result 168 k/mm3 (150-375); Red Blood Count 4.53 M/mm3 (4.6-6.20); Red Cell Distribution Width 12.4 % (11.5-14.5); White Blood Count 6.7 K/mm3 (4.5-10.0)
[2023-04-19 00:25] LABS: INR 0.9; Prothrombin Time 13.1 Seconds (11.1-14.7)
[2023-04-19 00:26] LABS: Partial Thromboplastin Time 27.3 SECONDS (22.3-36.8)
[2023-04-19 00:31] LABS: Troponin I < 0.012 ng/mL (0.000-0.034)
== END 2023-04-19 01:03 | disposition home or self-care (01) ==
PROVIDERS: Emergency Provider Emergency Medicine; PCP Family Medicine
DX: R00.2 Palpitations (principal); I49.9 Cardiac arrhythmia, unspecified; I10 Essential (primary) hypertension; E78.5 Hyperlipidemia, unspecified; Z85.850 Personal history of malignant neoplasm of thyroid
CPT/HCPCS: 36415; 71046; 80053; 83690; 84484; 85025; 85610; 85730; 93005; 99284

== ENCOUNTER 2024-10-05 14:44 | Outpatient (CLI) | payer OTHER, SELFPAY ==
--- NOTE | ~2024-10-05 | CT_ITS ---
CT of the Abdomen and Pelvis: Indication: Abdominal pain Technique: 2.5 mm axial scans were obtained through the abdomen and pelvis following intravenous adm inistration of 100 cc of Omnipaque 350. Dose reduction technique was used on this scan by utilizing a utomated exposure control and iterative reconstruction technique. The dose-length product (DLP) was 5 31.57 mGy-cm. Findings: Scans through the lung bases are unremarkable. The liver, spleen, pancreas, gallbladder, adrenals and kidneys are within normal limits. There are atherosclerotic calcifications of the aorta. No lymphadenopathy. No bowel obstruction or bowel wall thickening. There is no evidence to suggest acute appendicitis. Images through the pelvis were performed. Urinary bladder unremarkable. Prostate gland is enlarged. S mall bilateral fat-containing inguinal hernias are present. There is degenerative spondylosis of the lumbar spine. Impression: Small bilateral fat-containing inguinal hernias. Enlarged prostate gland. Reviewed, dictated and finalized at location . Impression: Small bilateral fat-containing inguinal hernias. Enlarged prostate gland.
[2024-10-05 15:14] LABS: Estimated Glomerular Filt Rate 55
== END 2024-10-05 14:45 | disposition home or self-care (01) ==
PROVIDERS: PCP Family Medicine; Visit Provider Family Medicine
DX: R10.32 Left lower quadrant pain (principal); R19.00 Intra-abdominal and pelvic swelling, mass and lump, unspecified site; K40.20 Bilateral inguinal hernia, without obstruction or gangrene, not specified as recurrent; N40.0 Benign prostatic hyperplasia without lower urinary tract symptoms
CPT/HCPCS: 74177; Q9967

== ENCOUNTER 2024-12-01 07:54 | Outpatient (CLI) | payer OTHER, SELFPAY ==
--- OUTSIDE RECORDS SUMMARY | 2024-12-01 07:59 | XMS_ITS | Clinical Summary ---
Author Organization [facility] Address [address] [place] [address] Care Team Providers Care Cost Controller Name Role Phone Nguyen Key MD Primary Care Provider [phone] Source Comments [facility],non-owned Affiliates and Associated Physician Practices is amultiple site organization consisting of ambulatory clinics and hospital sitesin [place], [place], [place] and [place]. This disclosure is being madepursuant to the Care Everywhere program and may not contain all information available regarding this patient. Last updated 18.[facility] Allergies Active Allergy Reactions Criticality Noted Date Comments Penicillins Rash Medium 01/09/2022 Medications * Be aware that medications may not be up to date on this document. Alwaysverify current medications with the patient. 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 Gender Identity Not on file Sexual Orientation Not on file Last Filed Vital Signs Vital Sign Reading Time Taken Comments Blood Pressure 143/83 01/09/2022 7:47 PM CDT Pulse 65 01/09/2022 7:47 PM CDT Temperature 36.7 C (98 F) 01/09/2022 7:47 PM CDT Respiratory Rate 20 01/09/2022 7:47 PM CDT Oxygen Saturation 98% 01/09/2022 7:47 PM CDT Inhaled Oxygen Concentration - - Weight 79.4 kg (175 lb) 01/09/2022 4:52 PM CDT Height 182.9 cm (6') 01/09/2022 4:52 PM CDT Body Mass Index 23.73 01/09/2022 4:52 PM CDT Plan of Treatment Health Maintenance Due Date Last Done Comments COLOGUARD (AGES 45-75) - COLON CA SCREENING 1959 COLON MONITORING 1959 COLONOSCOPY - COLON CA SCREENING 1959 CT COLONOGRAPHY - COLON CA SCREENING 1959 Colorectal Cancer Screening 1959 FIT - COLON CA SCREENING 1959 FLEX SIG - COLON CA SCREENING 1959 LIPID TESTING 1959 HIV SCREENING 1974 HEPATITIS C SCREENING 01/17/1977 DTAP/TDAP/TD VACCINES (1 - Tdap) 1978 PNEUMOCOCCAL VACCINE 50+ (1 of 1 - PCV) 2009 ZOSTER VACCINE (1 of 2) 2009 COVID-19 VACCINE ( - season) 2024 12/08/2021, 06/15/2021, 11/09/2020, Additional history exists DEPRESSION SCREENING 07/26/2024 INFLUENZA VACCINE (Season Ended) 2025 05/02/2021, 05/24/2020, 05/13/2011 Respiratory Syncytial Virus (RSV) Vaccine Pt: or over 60 yrs (1 - 1-dose 75+ series) 2034 HEPATITIS B VACCINE Aged Out No longe r eligible based on patient's age to complete this topic HIB VACCINE Aged Out No longer eligi ble based on patient's age to complete this topic HPV VACCINE Aged Out No longer eligi ble based on patient's age to complete this topic MENINGOCOCCAL (Group B) VACCINE SHARED DECISION-MAKING Aged Out No longer eligible based on patient's age to complete this topic MENINGOCOCCAL GROUPS A/C/Y/W VACCINE Aged Out No longer eligible based on patient's age to complete this topic Insurance [employer] Care Teams Cost Controller Relationship Specialty Start Date End Date Nguyen Key MD [address] [place] [address] PCP - General Family Medicine 01/09/22
--- OUTSIDE RECORDS SUMMARY | 2024-12-01 07:59 | XMS_ITS | CONTINUITY OF CARE DOCUMENT ---
Author Name jaylene mariee Address Unknown Organization [facility] Address [address] [place] [address] Phone [phone] Care Team Providers Care Operating Room Tech Name Role Phone EWA JOHNSTON, NAHUM Chaves Unavailable [phone] LEIGHA JOHNSTON, LARS Unavailable [phone] INSURANCE PROVIDERS Payer name Policy type / Coverage type Stephenson red libertarian ID [facility] [id number]
[2024-12-01 08:22] LABS: Basophils Percent Auto 0.4 % (0.2-1.2); Eosinophils Absolute Auto 0.2 K/mm3 (0-0.3); Eosinophils Percent Auto 2.8 % (0-4.4); Hematocrit 45.1 % (42.0-52.0); Immature Granulocyte Absolute 0.02 K/mm3 (0.00-0.031); Immature Granulocyte Percent A 0.3 % (0-0.5); Lymphocytes Absolute Auto 1.13 K/mm3 (0.9-3.2); Lymphocytes Percent Auto 15.8 % (18.3-44.2); Mean Corpuscular HGB Conc 33.3 g/dl (32-36); Mean Corpuscular Volume 99.1 fl (80-100); Mean Platelet Volume 10.2 fl (7.4-10.4); Monocytes Absolute Auto 0.5 K/mm3 (0.1-0.6); Neutrophils Absolute Auto 5.3 K/mm3 (1.3-6.7); Neutrophils Percent Auto 73.7 % (45.5-73.1); Platelet Count Result 163 k/mm3 (150-375); Red Blood Count 4.55 M/mm3 (4.6-6.20); Red Cell Distribution Width 12.1 % (11.5-14.5); White Blood Count 7.2 K/mm3 (4.5-10.0)
[2024-12-01 08:31] LABS: Anion Gap 7 mmol/L (4-12); Blood Urea Nitrogen 25 mg/dL (9-20); Calcium 9.3 mg/dL (8.4-10.2); Carbon Dioxide 29 mmol/L (22-30); Chloride 103 mmol/L (98-107); Estimated Glomerular Filt Rate > 60; Glucose 90 mg/dL (65-110); Sodium 139 mmol/L (137-145)
== END 2024-12-01 07:55 | disposition home or self-care (01) ==
LOC: ANHSURGERY 07:57
PROVIDERS: Anesthesiology; PCP Family Medicine; Visit Provider Surgery
DX: R22.2 Localized swelling, mass and lump, trunk (principal); K40.91 Unilateral inguinal hernia, without obstruction or gangrene, recurrent; K40.90 Unilateral inguinal hernia, without obstruction or gangrene, not specified as recurrent; Z79.899 Other long term (current) drug therapy
CPT/HCPCS: 36415; 80048; 85025; 86850; 86900; 86901

== ENCOUNTER 2024-12-11 01:43 | Day surgery (SDC) | payer OTHER, SELFPAY ==
[2024-11-27 13:38] VITALS: BMI 22.8
--- NOTE | 2024-11-27 13:52 | PC.NURSE ---
Addendum entered by Ana Luisa Rubalcava RN 11/29/24 12:02: Pt called, no change in status was rescheduled due to OR issues, new date is 12/11/24 at 1200pm, here at 1000am Patients may have clear liquids (water, carbonated beverages, clear teas, apple juice) until 3 hours prior to surgery with a maximum of 20 ounces. - No food from midnight until time of surgery and no smoking, or chewing tobacco (or any form of nicotine). No chewing gum, candy or mints. (0900am) Take only the following medications with a SIP of water on the morning of surgery: Buspirone, Flecainide, Levothyroxine, Propanalol DO NOT STOP ANY OF YOUR OTHER PRESCRIPTION MEDICATIONS PRIOR TO SURGERY EXCEPT THE FOLLOWING Hold all vitamins and supplements for 3 days per anesthesiologist. Date of last dose 12/07/24 Medications to discontinue per physician __None Date to take last dose None Pt Understanding of all, pt to get testing done soon too DOLORES Original Note: Report to the Outpatient Waiting Room, entrance under the [facility] located off [facility], at time _0730am on date __12/08/24 . Planned Procedure Time: _0930am . Time changes happen often and if your time is changed the preop area will call you the afternoon before. - You and your visitor will be asked to self-screen and do not enter if you have any COVID symptoms. Please call surgeon if you need to reschedule. - A mask is optional within the hospital at this time. Patients may have clear liquids (water, carbonated beverages, clear teas, apple juice) until 3 hours prior to surgery with a maximum of 20 ounces. - No food from midnight until time of surgery and no smoking, or chewing tobacco (or any form of nicotine). No chewing gum, candy or mints. (06:30am) Take only the following medications with a SIP of water on the morning of surgery: Busprione, Flecainide, Levothyroxine, Propanalol DO NOT STOP ANY OF YOUR OTHER PRESCRIPTION MEDICATIONS PRIOR TO SURGERY EXCEPT THE FOLLOWING Hold all vitamins and supplements for 3 days per anesthesiologist. Date of last dose 12/04/24 Medications to discontinue per physician __Meloxicam per Dr Uriostegui, they will let pt know if needs to hold Date to take last dose per Above Please no make-up, nail swedish, hairspray, perfume, deodorant, or body powder the day of surgery. No jewelry (including any body piercings) or valuables the day of surgery, leave them at home. Please take a shower or bath the night before, or the morning of, surgery with an antibacterial soap. Wear comfortable, loose fitting clothing. - Jewelry must be removed prior to entering the operating room. Rings and piercings that are not removed may be cut off. - The hospital will not accept responsibility for valuables. - Please leave all valuables, including medications, at home the day of surgery. If you are going home after surgery, a licensed power screwdriver operator must drive you home. - NO public transportation without another adult if you receive anesthesia. - We recommend that an adult stay with you for 24 hours following discharge. - We also recommend that you do not drive, make important decision, drink alcoholic beverages, or take any drugs that were not prescribed by your health care provider for at least 24 hours after your discharge time. Follow any additional instructions given to you from your surgeon. Telephone instructions given to __Patient and asked if any additional questions and then verbalized understanding. Patient advised to call surgeon office or pre surgery nurse liaison [phone] if any additional questions.
--- NOTE | 2024-12-10 16:02 | PM.SD2 ---
Same Day Admit/Disch: HPI History of Present Illness Chief complaint: Recurrent Lt Ing Hernia, Rt Ing Hernia Narrative: Javi Car is a 64 year old male who has noticed a bulge and pain in the left groin area for approximately [address] scan done in September showed bilateral fat containing inguinal hernias and an enlarged prostate. Patient was seen in the office and has bilateral reducible inguinal hernias. He also has a 1.5 cm subcutaneous nodule just to the left of his umbilicus. This has been very tender. It appears to be a lipoma. His left inguinal hernia has had 2 previous open repairs. Patient is taken to surgery now for robotic laparoscopic repair with mesh of his recurrent left inguinal hernia, right inguinal hernia, as well as an open excision of the small nodule on his anterior abdominal wall. [facility] Past Medical History Medical History Arthritis Migraine Hyperlipidemia Thyroid cancer Hypertension Surgical History Surgical History H/O thyroidectomy History of lumbar laminectomy Hx of left inguinal hernia repair Family History Family History Father Heart disease COPD (chronic obstructive pulmonary disease) Mother Age related osteoporosis Grandparent Cerebrovascular accident Pancreatic cancer Multiple myeloma Melanoma Diabetes mellitus Hypertension Grandparent Heart disease Social History Social History Smoking packs per day: 0.25 Smoking cigarettes per day: 5.0 Years smoked: 1 Smoking pack-years: 0.25 Smoking status: Never smoker Second hand tobacco smoke exposure: No Smoking end date: 07/26/78 Alcohol intake: current Drinks per week: 3 Alcohol use details: 5 to 7 drinks a week. Substance use: never Substance use type: does not use Do You Feel Safe in your Home?: Yes Lack of Transportation: No Lack of Food: Never True Current Housing: I Have Housing Concerned About Future Housing: No Difficulty Paying Gas/Electric Bills: No Difficulty Paying for Meds: Decline to Answer Currently Unemployed: No Education: Associate Degree Difficulty w/ Childcare or Family Care: No Living arrangements: with family Additional living arrangements comments: Occupation/Education: occupation Gender identity (if verbalized by the patient): Male Sexual Orientation (if Verbalized by the Patient): Straight or Heterosexual Spiritual care concerns: No Agree to blood products: Yes Same Day Admit/Disch: Med Pre-admit Medications Home Medications Medication Instructions Recorded Confirmed Type finasteride 5 mg tablet 5 mg PO DAILY 04/18/23 12/11/24 History tamsulosin 0.4 mg capsule 0.4 mg PO Q24H 04/18/23 12/11/24 History rizatriptan 10 mg disintegrating See Rx Instructions PO .COMPLEX 01/26/24 11/27/24 Rx tablet #10 tabs triamterene 37.5 1 tablet PO QAM #90 tabs 03/28/24 12/11/24 Rx mg-hydrochlorothiazide 25 mg tablet simvastatin 40 mg tablet 40 mg PO HS #90 tabs 05/17/24 12/11/24 Rx meloxicam 15 mg tablet 15 mg PO DAILY #30 tabs 07/09/24 12/11/24 Rx buspirone 10 mg tablet See Rx Instructions .Route 08/01/24 12/11/24 Rx .COMPLEX #270 tabs flecainide 50 mg tablet 100 mg PO Q12H 09/21/24 12/11/24 History propranolol 120 mg capsule,24 120 mg PO BID #1 cap 09/21/24 12/11/24 Rx hr,extended release (Inderal LA) levothyroxine 150 mcg tablet 150 mcg PO DAILY #90 tabs 09/26/24 12/11/24 Rx (Levo-T) ibuprofen 600 mg tablet 600 mg PO Q6H PRN pain #14 tabs 12/11/24 Rx oxycodone-acetaminophen 5 mg-325 0.5 - 1 tablet PO Q4H PRN pain #15 12/11/24 Rx mg tablet (Percocet) tabs Review of Systems Review of Systems All systems reviewed & are unremarkable except as noted in HPI and below (HPI) Exam Const: General: comfortable, no acute distress, alert and awake HENMT: Head: normocephalic and atraumatic Mouth: Yes Normal oral and palatal mucosa present Eyes: Conjunctivae: conjunctivae normal Pupils: Equal, round and reactive pupils present EOM: EOMs intact bilaterally Neck: Neck: normal visual inspection, no lymphadenopathy and nontender Resp: Effort & Inspection: normal respiratory effort Auscultation: clear to auscultation bilaterally Cardio: Rate: regular rate Rhythm: regular rhythm Heart sounds: no gallops, no murmurs and no rubs GI: Inspection: non-distended and other (Small nodule just left of umbilicus) GI Palp: Yes Soft to palpation, No Tenderness to palpation present (GI), No Hepatomegaly present, No Splenomegaly present and Yes Palpable mass present (1.5 x 1 cm tender subcutaneous nodule just left of the umbilicus.) : Male General Exam: Yes hernia (Bilateral reducible inguinal hernias, scar on left side from previous repai) Penis: Yes normal penis Scrotum: scrotum normal Testes: Testes normal Skin: Lesions: no lesions Rashes: no rashes Neuro: General: no focal motor deficits and CN's II-XI intact bilaterally Cranial nerves: Yes Equal, round and reactive pupils present, Yes Bilaterally intact EOM present, Yes facial symmetry and Yes Midline tongue present Speech: normal speech Motor exam (neuro): 5/5 motor strength present throughout and Motor abnormalities not present Extrem: General: no clubbing, cyanosis or edema and edema Psych: Affect: normal affect Thought process: Normal thought process present Insight: Good insight present (Psych) DS: Summary Time Spent with Patient Time attestation: Total time spent providing and/or coordinating discharge services: DS: Admitting Diagnosis Discharge Date 12/11/2024 Admitting Diagnosis Recurrent left inguinal hernia Right inguinal hernia 1.5 cm subcutaneous nodule abdominal wall-plan is to repair both of the inguinal hernias with robotic laparoscopic technique. Under the same anesthetic we will excise the subcutaneous nodule noted above. The procedures were discussed with the patient thoroughly. The risks, benefits, alternatives were discussed. The usual length of the surgery as well as length of recovery were discussed. The use of mesh for the hernia repairs was discussed. All questions were answered. He understands and agrees to go ahead. DS: Discharge Diagnosis Discharge Diagnosis (1) Recurrent left inguinal hernia: Code(s): K40.91 - Unilateral inguinal hernia, without obstruction or gangrene, recurrent Status: Acute (2) Right inguinal hernia: Code(s): K40.90 - Unilateral inguinal hernia, without obstruction or gangrene, not specified as recurrent Status: Acute (3) Subcutaneous mass of abdominal wall: Code(s): R22.2 - Localized swelling, mass and lump, trunk Status: Acute Discharge Plan Discharge Patient Disposition: Home Discharge Instructions: 1. May shower the day after surgery over incisions. 2. Call office for: -Wound increasingly painful or bleeding -Vomiting -Fever of greater than 101 degrees 3. Wear scrotal support at all times except when showering or sleeping for 1 week. 4. If no bowel movement for three days, take 1 oz. (30 ml) Milk of Magnesia, if no results, take Fleets enema. 5. No heavy lifting > 15-20 pounds for 2 weeks. 6. No driving for 3 days or while taking narcotic pain medications. 7. Up walking 10-30 minutes three times per day. Otherwise, activity should be sedentary. 8. Resume previous home medications. 9. Follow-up 10-14 days in office for wound check or as previously scheduled. 10. Oral pain medications prescription to be sent home with patient. 11. NUTRITION: Start out by drinking fluids and increase your diet as tolerated. If you experience nausea, try dry toast, crackers, and 7-UP. If nausea or vomiting persists, contact your surgeon’s office. Patient Language: Tanzanian Stand Alone Forms: General Discharge Instructions Follow-up/Referrals: Saeid Uriostegui MD [Physician] - 2 Weeks (Call Dr. Dunne office for appointment if you do not already have an appointment.) Discharge Medications: New oxycodone-acetaminophen [Percocet] 5-325 mg tablet 0.5 - 1 tablet PO Q4H PRN (Reason: pain) Qty: 15 0RF ibuprofen 600 mg tablet 600 mg PO Q6H PRN (Reason: pain) Qty: 14 0RF Continued rizatriptan 10 mg tablet,disintegrating See Rx Instructions PO .COMPLEX Qty: 10 6RF Rx Instructions: take 1 tab at onset of headache; if no relief may repeat 1 tab after at least 2 hrs; max = 3 tabs/24 hr PO flecainide 50 mg tablet 100 mg PO Q12H propranolol [Inderal LA] 120 mg capsule,extended release 24 hr 120 mg PO BID Qty: 1 0RF tamsulosin 0.4 mg capsule 0.4 mg PO Q24H Rx Instructions: HS finasteride 5 mg tablet 5 mg PO DAILY Patient Comments: HS triamterene-hydrochlorothiazid 37.5-25 mg tablet 1 tablet PO QAM Qty: 90 2RF simvastatin 40 mg tablet 40 mg PO HS Qty: 90 2RF buspirone 10 mg tablet See Rx Instructions .ROUTE .COMPLEX Qty: 270 1RF Dose Instruction: TAKE 1 TABLET BY MOUTH THREE TIMES A DAY Rx Instructions: TAKE 1 TABLET BY MOUTH THREE TIMES A DAY levothyroxine [Levo-T] 150 mcg tablet 150 mcg PO DAILY Qty: 90 0RF Held meloxicam 15 mg tablet 15 mg PO DAILY Qty: 30 5RF Hold Instructions: Resume on 12/18/24. Hold while taking ibuprofen
[2024-12-11] VITALS (11 sets, daily range): BP systolic 101–164; BP diastolic 38–90; PULSE 54–67; RESP 10–18; TEMP 36.2–36.4; O2SAT 94–99
--- OUTSIDE RECORDS SUMMARY | 2024-12-11 01:45 | XMS_ITS | CONTINUITY OF CARE DOCUMENT ---
Author Name jaylene mariee Address Unknown Organization [facility] Address [address] [place] [address] Phone [phone] Care Team Providers Care Pit Tanner Name Role Phone EWA JOHNSTON, NAHUM Chaves Unavailable [phone] LEIGHA JOHNSTON, LARS Unavailable [phone] INSURANCE PROVIDERS Payer name Policy type / Coverage type [place] red republican ID [facility] [id number]
--- OUTSIDE RECORDS SUMMARY | 2024-12-11 01:45 | XMS_ITS | Clinical Summary ---
Author Organization [facility] Address [address] [place] [address] Care Team Providers Care Food Cooking Machine Operator Name Role Phone Nguyen Key MD Primary Care Provider [phone] Source Comments [facility],non-owned Affiliates and Associated Physician Practices is amultiple site organization consisting of ambulatory clinics and hospital sitesin [place], [place], [place] and [place]. This disclosure is being madepursuant to the Care Everywhere program and may not contain all information available regarding this patient. 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
--- OUTSIDE RECORDS SUMMARY | 2024-12-11 01:45 | XMS_ITS | Continuity of Care Document ---
Author Organization [facility] Address [address] [place] [address] Phone Care Team Providers Care Associate Art Director Name Role Phone Colin Morrell PT Unavailable Unavailable Procedures Procedure Date Therapeutic Activities Neuromuscular Re-Ed Manual Therapy Therapeutic Exercise Progress Note Neuromuscular Re-Ed Therapeutic Exercise Therapeutic Activities Manual Therapy Therapeutic Activities Manual Therapy Therapeutic Exercise Neuromuscular Re-Ed Neuromuscular Re-Ed Manual Therapy Therapeutic Activities Therapeutic Exercise Therapeutic Activities Manual Therapy Therapeutic Exercise Neuromuscular Re-Ed Neuromuscular Re-Ed Therapeutic Activities Therapeutic Exercise Manual Therapy Therapeutic Activities Therapeutic Exercise Manual Therapy Neuromuscular Re-Ed PT Evaluation Moderate Complexity Therapeutic Activities Neuromuscular Re-Ed Therapeutic Exercise Advance Directives Directive Yes / No Effective Date File Name No Information Encounters Encounter Description Practice Location Reason(s) For Visit Diagnoses Date Provider Providers Copied on Encounter [facility], [address], [place], [place], [id number], [place] tel:[phone] [place] No Information 2 Petros Colin. . Referring Provider: Faye Patterson [address], [place], [address]. tel:[phone] [facility], [address], [place], [place], [id number], [place] tel:[phone] [place] No Information 2 Petros Colin. . Referring Provider: Faye Patterson [address], [place], [address]. tel:[phone] [facility], [address], [place], [place], [id number], [place] tel:[phone] [place] No Information 2 Petros Colin. . Referring Provider: Faye Patterson [address], [place], [address]. tel:[phone] [facility], [address], [place], [place], [id number], [place] tel:[phone] [place] No Information 2 Petros Colin. . Referring Provider: Faye Patterson [address], [place], [address]. tel:[phone] [facility], [address], [place], [place], [id number], [place] tel:[phone] [place] No Information 2 Petros Colin. . Referring Provider: Faye Patterson [address], [place], [address]. tel:[phone] [facility], [address], [place], [place], [id number], [place] tel:[phone] [place] No Information 2 Petros Colin. . Referring Provider: Faye Patterson [address], [place], [address]. tel:[phone] [facility], [address], [place], [place], [id number], tel:[phone] [place] No Information 2 Petros Peters . Referring Provider: Kasie Cannon [address], [place], [address]. tel:[phone] [facility] [address], [place], [place], [id number], tel:[phone] [place] No Information 2 Petros Peters . Referring Provider: Kasie Cannon [address], [place], [address]. tel:[phone] Family History Family Member Type Diagnosis Age At Onset No Information Payers Payer name Insurance type Covered constitution party ID Authorjordan kuo(s) PerdomoAsicAhead [facility] 00 Social History Type Description Quantity Date Captured Comments Sex Male Smoking Status No Information Chief Complaint And Reason For Visit No Information Reason For Referral Reason For Referral No Information History Of Present Illness Encounter Date Complaint History Of Prese nt Illness No Information Functional Status Date Functional Assessmen t No Information Instructions Date Instruction Additional Infor mation No Information Assessments Type Assessment Date No Information Patient Care Teams Name Effective Dates (start - stop) Status Members No Information
[2024-12-11] MEDS: ACETAMINOPHEN 500 MG TABLET 1000 MG PO (10:25)
[2024-12-11] MEDS: LACTATED RINGERS 1,000 ML 30 ML IV CONT ×2 (10:30→16:23)
[2024-12-11] MEDS: KETOROLAC 15 MG/ML VIAL (*BKC) IV PUSH (10:35)
--- NOTE | 2024-12-11 11:20 | WPDANESEPPF ---
Anes - Initial Pre Proc Eval Procedure: Operation Date: 12/11/24 12:00 Proposed Procedures p Robotic Laparoscopic Repair of Recurrent Left Inguinal Hernia with Mesh, Repair Right Inguinal Hernia with Mesh, Excision Abdominal Subcutaneous Mass - Saeid Uriostegui MD Date/Time: 12/11/24 11:20 Surgeon: Saeid Uriostegui MD Pre Op Diagnosis: Recurrent Lt Ing Hernia, Rt Ing Hernia Patient Data Age: 64 Gender: M Height: 1.83 m Weight: 75.5 kg Last Vital Signs Temp 36.2 C L 12/11/24 11:10 Pulse 54 L 12/11/24 11:10 Resp 18 12/11/24 11:10 BP 147/38 H 12/11/24 11:10 Pulse Ox 99 12/11/24 11:10 O2 Del Method Room Air 12/11/24 11:10 Allergies Allergy/AdvReac Type Severity Reaction Status Date / Time Penicillins Allergy Severe IRRITATION/SWELLING Verified 12/11/24 11:12 IN THROAT Home Medications Medication Instructions Recorded Confirmed Type finasteride 5 mg tablet 5 mg PO DAILY 04/18/23 12/11/24 History tamsulosin 0.4 mg capsule 0.4 mg PO Q24H 04/18/23 12/11/24 History rizatriptan 10 mg disintegrating See Rx Instructions PO .COMPLEX 01/26/24 11/27/24 Rx tablet #10 tabs triamterene 37.5 1 tablet PO QAM #90 tabs 03/28/24 12/11/24 Rx mg-hydrochlorothiazide 25 mg tablet simvastatin 40 mg tablet 40 mg PO HS #90 tabs 05/17/24 12/11/24 Rx meloxicam 15 mg tablet 15 mg PO DAILY #30 tabs 07/09/24 12/11/24 Rx buspirone 10 mg tablet See Rx Instructions .Route 08/01/24 12/11/24 Rx .COMPLEX #270 tabs flecainide 50 mg tablet 100 mg PO Q12H 09/21/24 12/11/24 History propranolol 120 mg capsule,24 120 mg PO BID #1 cap 09/21/24 12/11/24 Rx hr,extended release (Inderal LA) levothyroxine 150 mcg tablet 150 mcg PO DAILY #90 tabs 09/26/24 12/11/24 Rx (Levo-T) Patient hx anesthesia problems: none Family hx anesthesia problems: none Results Review: All pre-operative results and documents have been reviewed as part of the pre-operative evaluation. [facility] Past Medical History Medical History Arthritis Migraine Hyperlipidemia Thyroid cancer Hypertension Surgical History Surgical History H/O thyroidectomy History of lumbar laminectomy Hx of left inguinal hernia repair Family History Family History Father Heart disease COPD (chronic obstructive pulmonary disease) Mother Age related osteoporosis Grandparent Cerebrovascular accident Pancreatic cancer Multiple myeloma Melanoma Diabetes mellitus Hypertension Grandparent Heart disease Social History Social History Smoking packs per day: 0.25 Smoking cigarettes per day: 5.0 Years smoked: 1 Smoking pack-years: 0.25 Smoking status: Never smoker Second hand tobacco smoke exposure: No Smoking end date: 07/26/78 Alcohol intake: current Drinks per week: 3 Alcohol use details: 5 to 7 drinks a week. Substance use: never Substance use type: does not use Do You Feel Safe in your Home?: Yes Lack of Transportation: No Lack of Food: Never True Current Housing: I Have Housing Concerned About Future Housing: No Difficulty Paying Gas/Electric Bills: No Difficulty Paying for Meds: Decline to Answer Currently Unemployed: No Education: Associate Degree Difficulty w/ Childcare or Family Care: No Living arrangements: with family Additional living arrangements comments: Occupation/Education: occupation Gender identity (if verbalized by the patient): Male Sexual Orientation (if Verbalized by the Patient): Straight or Heterosexual Spiritual care concerns: No Agree to blood products: Yes Anes - Eval Final PreProcedure Day of Procedure 12/11/24 11:20 Patient weight: normal Heart: regular rate and rhythm Lungs: clear to auscultation Airway: Mallampati scale class III Neurological: alert and oriented Last oral intake: >/= 8 hours ASA classification: III Emergent: no Anesthetic plan: proceed Anesthesia type and monitoring: general ETT and standard monitoring Results Review: All pre-operative results and documents have been reviewed as part of the pre-operative evaluation. Informed Consent: The patient's anesthetic plan and its attendant risks and benefits were discussed with the patient/family/POA. Questions were solicited and answers provided to the satisfaction of the patient/family/POA.
--- NOTE | 2024-12-11 12:11 | WPDHPUPDATE1 ---
History and Physical Update Update Date/Time: 12/11/24 12:11 History and Physical has been reviewed, including an updated exam of the patient. There are NO changes in the patient's condition. Risks, benefits, and alternatives have been discussed and questions answered. Patient agrees to proceed with procedure.
[2024-12-11] MEDS: ceFAZolin 2 GM/D5W 50 ML 2 GM/50 ML BAG IVPB (12:59)
[2024-12-11] MEDS: BUPIVACAINE/EPINEPHRINE 0.5% 50 ML VIAL 30 ML INFILTRATE (13:53)
--- NOTE | 2024-12-11 16:58 | W.PM.PROC2 ---
Procedure Note - Detailed Date of Procedure 12/11/24 Pre-op Diagnosis Recurrent Lt Ing Hernia, Rt Ing Hernia, subcutaneous mass left abdominal wall Post-op Diagnosis Same Procedure Performed Excision 2.5 cm subcutaneous mass abdominal wall, robotic laparoscopic repair recurrent left inguinal hernia with mesh, robotic laparoscopic repair right inguinal hernia with mesh Surgeon Saeid Uriostegui MD Airport Manager Mukund FLORES, Sharlene FLORES Anesthesia General and Local Indications Patient has had 2 previous left inguinal hernia repairs. He has noticed pain and a bulge in the left groin again. He also has a painful subcutaneous nodule on the abdomen just above into the left of the umbilicus. On exam in the office he was noted to have a new right inguinal hernia, a recurrent left inguinal hernia, and a subcutaneous tender mass in the left side of the upper abdomen. He is taken to surgery now for bilateral hernia repair as well as excision of the nodule. Findings Both hernias were direct inguinal hernias. The right was quite a bit larger than the left. The left appeared to have had a plug and patch technique. The direct hernia that had developed around the previous plug. The plug in the indirect space was intact with no hernia. The subcutaneous nodule appeared to be a lipoma. Description of Procedure Patient was taken to surgery and induced into general anesthesia. The entire abdomen is prepped and draped. We looked 1st at the subcutaneous nodule on the left side of the abdomen. I had marked the area this nodule on the skin in the preoperative area. I then marked the anticipated incision and infiltrated local anesthetic over the incision and around the nodule. Incision was made and then deepened down through the skin and superficial subcutaneous. The nodule was then easily seen. It was dissected using blunt and sharp dissection to shell it out from the surrounding subcutaneous. There was no margin associated with the excision. It was measured and was 2.5 cm in greatest dimension. It was sent in formalin to pathology labeled subcutaneous mass abdominal wall. The wound was closed with subcutaneous interrupted 4-0 Vicryl sutures. The skin was loosely approximated with subcuticular interrupted 4-0 Vicryl sutures. We then proceeded with the robotic hernia repairs. We placed a 5 mm applied Medical optical trocar in the abdomen in left subcostal position. After adequate insufflation, the 2 robotic trocars were placed and the 5 mm port was switched out for another 8 mm robotic port. Patient was placed in steep Trendelenburg and the robot was brought into the field. The camera was docked and targeted. The working ports were then fitted with instruments and the instruments were position and appropriately. The surgeon went to the robotic console. I started on the right side and created an anterior flap by dividing the peritoneum from lateral over to the median umbilical ligament. Flap was then developed broadly. In the medial aspect, dissection stayed on the back of the right rectus muscle and we came down on to Storm's ligament. Dissection was then then carried out from anterior posterior along the lateral aspect of the flap and over the cord structures. I exposed the pubis and the left medial aspect of the rectus muscle. We dissected over to the lateral aspect of Storm's ligament. The cord structures were carefully dissected completely free of the peritoneum. While dissecting medially, a very large direct hernia defect was noted and the transversalis fascia was carefully dissected away from the herniated contents which was fatty tissue primarily. Eventually, the entire inguinal canal anatomy was dissected adequately. An extra-large right mid 3D max mesh was then placed over the dissection. It was positioned appropriately and lay very nicely over the hernia and the normal structures. I then sutured the mesh in place. I used 3-0 Vicryl and 1st sutured it to Storm's ligament. The anterior most aspect of the mesh was sutured to the abdominal wall on both the medial and lateral sides of the mesh. With the mesh secured, I then closed the peritoneal opening with 3-0 V lock suture. We then turned our attention to the left inguinal area. It was obvious that this had had surgery before and I could see the end of the plug of mesh in the indirect space. An anterior peritoneal incision was again made and carried from the lateral aspect of the inguinal canal structures to the medial aspect and in fact went through and beyond the median umbilical ligament. In similar fashion, I dissected just behind the left rectus muscle and encountered the space I had created from doing the right-sided surgery. Storm's ligament and the pubis were found. This side also had a direct hernia. There was a plug of mesh in the hernia but it had herniated medially around the previous repair. I continued to dissect the flap from the lateral aspect leaving the attachments to the direct hernia for now. The lateral aspect of the flap was quite adherent to the plug of mesh in the indirect space and several openings occurred in this area. Eventually, I was able to dissect the flap far posteriorly laterally and then dissected off the cord structures in the central aspect. This still left the herniated aspect of the peritoneal flap and the plug of mesh in the hernia defect. I went back to this area and dissected some of the peritoneum off the plug and dissected some transversalis fascia off the herniated content. The mesh was shrunken and quite imbedded in the lateral aspect of the defect. I cut some of the mesh off. In parts the mesh was in 20 and with very vascular structures but none of these vessels were in the vicinity of cord vessels. Cautery was used to achieve hemostasis. Initially a small portion of the mesh was dissected off and removed. I then continued the dissection trying to achieve as much hemostasis as possible and eventually dissected out the rest of the plug. There was some fatty plugs posterior and more lateral to the main defect. I reduced these defects and then finished dissecting the transversalis fascia from the herniated content until we had a well-defined direct inguinal hernia circumferentially. I further dissected posterior to Storm's ligament and the pubis. We dissected laterally to the obturator plug. Reviewing the area again, dissection was adequate to proceed with mesh placement. I used a large, 16 x 10 cm left mid 3DMax mesh for this. The mesh was positioned appropriately and lay very nicely up against the left side of the pelvis. The mesh was sutured in place with 3-0 Vicryl in the same fashion as the right side had been. The 2 meshes were not sutured together but did overlap of bed in the midline. I then closed the peritoneum with running 300 V lock suture. I was able to pull more medial peritoneum to the lateral aspect of the wound rather than use the more tattered peritoneum. Once the peritoneum was closed completely, there was a small opening in the lateral posterior aspect of the wound. I closed this with [id number] suture of 3-0 Vicryl. I then went back and closed a small area of the suture line on the right side with the 3-0 Vicryl suture. Now both sides looked good with the peritoneum closed and no signs of bleeding or other issues. We removed the left-sided mesh using the robotic bag. We closed the right-sided robotic port after removing the mesh with the Francesco cone and Francesco suture vas device. We then removed the remaining instruments and undocked the robot. CO2 was evacuated from the abdominal cavity. The trocars were removed and skin wounds were closed with subcuticular 4-0 Monocryl skin suture. The wounds were dressed including the excision site of the subcutaneous nodule with Exofin surgical adhesive. The patient was then fitted with an athletic supporter. He was awakened and taken to recovery in good condition. Sponge and needle counts were correct x2. Implants 17 x 12 cm extra-large right mid 3DMax mesh, 16 x 10 cm large left mid 3DMax mesh Estimated Blood Loss -20 Drains No Packing No Pathology None sent Complications None Condition Stable Disposition PACU [facility] Billing Surgery - Charge Forward: Surgery Billing (Excision 2.5 cm subcutaneous nodule abdominal wall with no margin, robotic laparoscopic repair recurrent left inguinal hernia with mesh, robotic laparoscopic repair right inguinal hernia with mesh)
--- NOTE | 2024-12-11 18:07 | SUR.PHASEII ---
Patient ambulated to bathroom and voided unmeasured amt of clear yellow urine without difficulty.
--- NOTE | 2024-12-11 18:12 | SUR.PHASEII ---
MD Coates contacted - pt reporting eye irritation. New orders for RN to give post op eye protocol.
[2024-12-11] MEDS: oxyCODONE HCL (*CRX) 5 MG TAB IR PO (18:25)
[2024-12-11] MEDS: PROPARACAINE HCL 0.5% 15 ML OPHTH SOLN 1 DROP EACH EYE (18:25)
[2024-12-11] MEDS: ARTIFICIAL TEARS OPHTH SOLN 15 ML BOTTLE 1 DROP EACH EYE (18:25)
[2024-12-11] MEDS: DICLOFENAC SODIUM 0.1% OPHTH SOLN 2.5 ML BOTTLE 1 DROP EACH EYE (18:27)
== END 2024-12-11 19:00 | disposition home or self-care (01) ==
PROVIDERS: PCP Family Medicine; Visit Provider Surgery
PROC: 8E0Y4CZ Robotic Assisted Procedure of Lower Extremity, Percutaneous Endoscopic Approach (ICD-10-PCS; CPT 49650; principal; 2024-12-11 12:00)
DX: D17.5 Benign lipomatous neoplasm of intra-abdominal organs (principal); K40.91 Unilateral inguinal hernia, without obstruction or gangrene, recurrent; K40.90 Unilateral inguinal hernia, without obstruction or gangrene, not specified as recurrent; G89.18 Other acute postprocedural pain; E78.5 Hyperlipidemia, unspecified; I10 Essential (primary) hypertension; Z79.1 Long term (current) use of non-steroidal anti-inflammatories (NSAID); Z79.891 Long term (current) use of opiate analgesic; Z79.899 Other long term (current) drug therapy; Z98.890 Other specified postprocedural states; Z98.1 Arthrodesis status; Z85.850 Personal history of malignant neoplasm of thyroid; Z80.0 Family history of malignant neoplasm of digestive organs; Z80.8 Family history of malignant neoplasm of other organs or systems; Z82.49 Family history of ischemic heart disease and other diseases of the circulatory system
CPT/HCPCS: 22902; 49651; 49650; S2900; 88304; A9270; C1781; J0690; J1171; J1885; J2250; J3010; J7120

== ENCOUNTER 2024-12-14 13:18 | Outpatient (CLI) | payer OTHER, SELFPAY ==
--- NOTE | ~2024-12-14 | US_ITS ---
EXAMINATION: US scrotum doppler DATE: 12/14/2024 14:21 INDICATION: Bilateral testicular swelling post recent hernia repair surgery TECHNIQUE: Testicular sonogram utilizing grayscale and Doppler COMPARISON: None. FINDINGS: The right testis measures 4.9 x 2.6 x 3.3 cm. The left testis measures 4.5 x 2.7 x 3.1 cm. Symmetric normal grayscale appearance to both testes. After flow is identified at both testes however this is m ore prominent in the right testis where there are clearly discernible arterial and venous waveforms. Pressure flow is identified in the left testis however degree of vascular is significantly lower the same levels again seen at the contralateral right testis and with significantly decreased arterial an d venous velocities compared with the contralateral testis. The right epididymis is normal with bobo l vascular flow. The left epididymis is normal with normal vascular flow. Very small bilateral hydroc eles. No left hydrocele. No varicocele. IMPRESSION: 1. Vascular flow is identified at both testes but with significant asymmetry, significantly more pro minent on the right. This could be due to either hyperemia of the right testis or relative ischemia t o the left testis. 2. Very small bilateral hydroceles. Reviewed, dictated and finalized at location A. IMPRESSION: 1. Vascular flow is identified at both testes but with significant asymmetry, significantly more prominent on the right. This could be due to either hyperemi a of the right testis or relative ischemia to the left testis. 2. Very small bilateral hydroceles.
--- OUTSIDE RECORDS SUMMARY | 2024-12-14 13:16 | XMS_ITS | CONTINUITY OF CARE DOCUMENT ---
Author Name jaylene mariee Address Unknown Organization [facility] Address [address] [place] [address] Phone [phone] Care Team Providers Care Senior Investment Analyst Name Role Phone EWA JOHNSTON, NAHUM Chaves Unavailable LEIGHA JOHNSTON, LARS Unavailable [phone] INSURANCE PROVIDERS Payer name Policy type / Coverage type [place] red constitution party ID [facility] [id number]
--- OUTSIDE RECORDS SUMMARY | 2024-12-14 13:16 | XMS_ITS | Clinical Summary ---
Author Organization [facility] Address [address] [place] [address] Care Team Providers Care Sexual Assault Counselor Name Role Phone Nguyen Key MD Primary Care Provider [phone] Source Comments [facility],non-owned Affiliates and Associated Physician Practices is amultiple site organization consisting of ambulatory clinics and hospital sitesin [place], [place], [place] and [place]. This disclosure is being madepursuant to the Care Everywhere program and may not contain all information available regarding this patient. 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
--- OUTSIDE RECORDS SUMMARY | 2024-12-14 13:26 | XMS_ITS | CONTINUITY OF CARE DOCUMENT ---
Author Name jaylene mariee Address Unknown Organization [facility] Address [address] [place] [address] Phone [phone] Care Team Providers Care Community Outreach Specialist Name Role Phone EWA JOHNSTON, NAHUM Chaves Unavailable LEIGHA JOHNSTON, LARS Unavailable [phone] INSURANCE PROVIDERS Payer name Policy type / Coverage type [place] red constitution party ID [facility] [id number]
[2024-12-14 14:47] LABS: Basophils Percent Auto 0.2 % (0.2-1.2); Eosinophils Percent Auto 0.1 % (0-4.4); Hematocrit 33.9 % (42.0-52.0); Hemoglobin 11.2 g/dL (14.0-18.0); Immature Granulocyte Percent A 0.6 % (0-0.5); Lymphocytes Absolute Auto 1.35 K/mm3 (0.9-3.2); Mean Corpuscular Hemoglobin 32.7 pg (26-34); Mean Corpuscular Volume 99.1 fl (80-100); Mean Platelet Volume 10.5 fl (7.4-10.4); Monocytes Absolute Auto 1.6 K/mm3 (0.1-0.6); Monocytes Percent Auto 9.6 % (2.6-8.5); Neutrophils Absolute Auto 13.8 K/mm3 (1.3-6.7); Neutrophils Percent Auto 81.5 % (45.5-73.1); Platelet Count Result 184 k/mm3 (150-375); Red Blood Count 3.42 M/mm3 (4.6-6.20)
== END 2024-12-14 13:19 | disposition home or self-care (01) ==
LOC: ANHIMG 13:22
PROVIDERS: PCP Family Medicine; Visit Provider Surgery
DX: N50.1 Vascular disorders of male genital organs (principal); N43.3 Hydrocele, unspecified; Z98.890 Other specified postprocedural states; Z87.19 Personal history of other diseases of the digestive system
CPT/HCPCS: 36415; 76870; 85025; 93976

== ENCOUNTER 2024-12-14 16:56 | Observation (INO) | payer OTHER, SELFPAY ==
--- OUTSIDE RECORDS SUMMARY | 2024-12-14 16:58 | XMS_ITS | Continuity of Care Document ---
Author Organization [facility] Address [address] [place] [address] Phone Care Team Providers Care Manipulative Therapy Specialist Name Role Phone Colin Morrell PT Unavailable Unavailable Procedures Procedure Date Therapeutic Activities Manual Therapy Neuromuscular Re-Ed Therapeutic Exercise Progress Note Manual Therapy Therapeutic Activities Neuromuscular Re-Ed Therapeutic Exercise Therapeutic Activities Manual Therapy Therapeutic Exercise Neuromuscular Re-Ed Therapeutic Exercise Therapeutic Activities Manual Therapy Neuromuscular Re-Ed Therapeutic Activities Therapeutic Exercise Manual Therapy Neuromuscular Re-Ed Therapeutic Activities Neuromuscular Re-Ed Therapeutic Exercise Manual Therapy Therapeutic Activities Therapeutic Exercise Neuromuscular Re-Ed Manual Therapy PT Evaluation Moderate Complexity Therapeutic Activities Neuromuscular Re-Ed Therapeutic Exercise Advance Directives Directive Yes / No Effective Date File Name No Information Encounters Encounter Description Practice Location Reason(s) For Visit Diagnoses Date Provider Providers Copied on Encounter [facility], [address], [place], [place], [id number], [place] tel:[phone] [place] No Information 2 Petros Colin. . Referring Provider: Faye Patterson [address], [place], [address]. tel:[phone] [facility], [address], [place], [place], [id number], [place] tel:[phone] [place] No Information 2 Petros Colin. . Referring Provider: Faye Patterson [address], [place], [address]. tel:[phone] [facility], [address], [place], [place], [id number], [place] tel:[phone] [place] No Information 2 Petros Colin. . Referring Provider: Faye Patterson [address], [place], [address]. tel:[phone] [facility], [address], [place], [place], [id number], [place] tel:[phone] [place] No Information 2 Petros Colin. . Referring Provider: Faye Patterson [address], [place], [address]. tel:[phone] [facility], [address], [place], [place], [id number], [place] tel:[phone] [place] No Information 2 Petros Colin. . Referring Provider: Faye Patterson [address], [place], [address]. tel:[phone] [facility], [address], [place], [place], [address], [place] tel:[phone] [place] No Information 2 Petros Colin. . Referring Provider: Faye Patterson [address], [place], [address]. tel:[phone] [facility], [address], [place], [place], [id number], tel:[phone] [place] No Information 2 Petros Peters . Referring Provider: Kasie Cannon [address], [place], [address]. tel:[phone] [facility] [address], [place], [place], [id number], tel:[phone] [place] No Information 2 Petros Peters . Referring Provider: Kasie Cannon [address], [place], [address]. tel:[phone] Family History Family Member Type Diagnosis Age At Onset No Information Payers Payer name Insurance type Covered constitution party ID Authorjordan kuo(s) [employer] [facility] 00 Social History Type Description Quantity [...]
--- OUTSIDE RECORDS SUMMARY | 2024-12-14 16:58 | XMS_ITS | Clinical Summary ---
Author Organization [facility] Address [address] [place] [place] [address] Care Team Providers Care Relationship Advisor Name Role Phone Nguyen Key MD Primary Care Provider [phone] Source Comments [facility],non-owned Affiliates and Associated Physician Practices is amultiple site organization consisting of ambulatory clinics and hospital sitesin [place], [place], [place] and [place]. This disclosure is being madepursuant to the Care Everywhere program and may not contain all information available regarding this patient. 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
[2024-12-14 18:03] VITALS: BMI 22.6
[2024-12-14] MEDS: DEXTROSE 5%/0.9% SOD CHL 1,000 ML 80 ML IV CONT (18:04)
--- NOTE | 2024-12-14 18:04 | ADMGEN ---
This patient, Javi Car, was admitted to Medical Room 243-01. Patient/family oriented to hospital policies and general routines including ID bracelet, bed and alarms, visiting hours, pain management, procedures, bathroom and other care routines, personal items, smoking policy, room service/diet, and visiting hours. Information on how to activate the Rapid Response Team has been discussed. Patient/Family are encouraged to report perceived risks to care and to ask questions if they do not understand what they are told or what they should do.
[2024-12-14 18:05] VITALS: BP 116/62; PULSE 72; RESP 18; TEMP 36.9; O2SAT 94
[2024-12-14] MEDS: HYDROmorphone HCL INJ (*CRX) 2 MG/ML VIAL 0.5 MG IV PUSH ×2 (18:08→20:36)
[2024-12-14] MEDS: CLINDAMYCIN 900 MG/D5W 50 ML 900 MG/50 ML PIGGYBACK 50 MG IVPB (18:26)
[2024-12-14 18:36] VITALS: PULSE 72; RESP 18; O2SAT 94
[2024-12-14 18:36] LABS: Lactic Acid Reflex 0.9 mmol/L (0.7-2.0)
[2024-12-14 20:00] VITALS: BP 116/59; PULSE 55; RESP 20; TEMP 36.6; O2SAT 94
[2024-12-14 20:33] VITALS: BP 116/59; PULSE 55; RESP 20; TEMP 36.6; O2SAT 94
[2024-12-14] MEDS: ceFAZolin 2 GM/D5W 50 ML 2 GM/50 ML BAG IVPB (20:35)
[2024-12-14] MEDS: SENNA/DOCUSATE SODIUM TABLET 2 TAB PO (20:36)
[2024-12-14] MEDS: HYDROmorphone HCL INJ (*CRX) 2 MG/ML VIAL 1 MG IV PUSH (23:15)
[2024-12-14 23:35] VITALS: BP 110/55; PULSE 62; RESP 18; TEMP 36.7; O2SAT 95
[2024-12-15] VITALS (10 sets, daily range): BP systolic 95–114; BP diastolic 48–71; PULSE 60–71; RESP 17–20; TEMP 36.3–37; O2SAT 91–99
[2024-12-15] MEDS: HYDROmorphone HCL INJ (*CRX) 2 MG/ML VIAL 0.5 MG IV PUSH ×2 (01:48→06:58)
[2024-12-15] MEDS: ONDANSETRON INJ 4 MG/2 ML VIAL IV PUSH (01:57)
[2024-12-15] MEDS: CLINDAMYCIN 900 MG/D5W 50 ML 900 MG/50 ML PIGGYBACK 50 MG IVPB ×3 (02:00→17:28)
[2024-12-15 04:19] LABS: Hematocrit 27.9 % (42.0-52.0); Hemoglobin 9.7 g/dL (14.0-18.0); Mean Corpuscular HGB Conc 34.8 g/dl (32-36); Mean Corpuscular Volume 97.9 fl (80-100); Mean Platelet Volume 10.9 fl (7.4-10.4); Platelet Count Result 150 k/mm3 (150-375); Red Blood Count 2.85 M/mm3 (4.6-6.20); Red Cell Distribution Width 12.2 % (11.5-14.5); White Blood Count 13.2 K/mm3 (4.5-10.0)
[2024-12-15 04:30] LABS: Anion Gap 5 mmol/L (4-12); Blood Urea Nitrogen 17 mg/dL (9-20); Calcium 8.4 mg/dL (8.4-10.2); Carbon Dioxide 29 mmol/L (22-30); Chloride 96 mmol/L (98-107); Estimated CRCL calculation 67 ml/min; Estimated Glomerular Filt Rate > 60; Glucose 131 mg/dL (65-110); Potassium 3.2 mmol/L (3.4-5.0); Sodium 130 mmol/L (137-145)
[2024-12-15] MEDS: ceFAZolin 2 GM/D5W 50 ML 2 GM/50 ML BAG IVPB ×2 (05:06→12:40)
--- NOTE | 2024-12-15 08:08 | PM.IMHP ---
H&P: HPI History of Present Illness Date/Time: 12/15/24 08:08 Chief Complaint: Postop pain Narrative: Patient underwent robotic laparoscopic repair of a recurrent left inguinal hernia as well as a right inguinal hernia on 12/11/2024. At the same procedure he had a small lipoma removed from his left mid abdominal wall. He called our office yesterday stating that he has 8/10 pain in his testicles, nausea, and severe bruising in the lower abdomen inguinal area penis and scrotum. He was sent [place] [id number] and a decrease in his H&H from 15 and 45 to 11.2 and 33.9. He had a testicular ultrasound which showed blood flow to each of the testicles although on the recurrent hernia, left, side, the amplitudes were not as great as on the right side. Patient was admitted yesterday for pain control, monitoring, and IV antibiotics. This morning, he feels much better. He still has quite a bit of discomfort in the pelvic and groin area. He also was having a lot of nausea yesterday but has taken Zofran and that is gone this morning. He is still somewhat afraid to eat for fear of inducing nausea. He has little or no complaints regarding the trocar site incisions or the lipoma removal incision. He is admitted now primarily for postop pain control but also monitoring and prophylactic antibiotic treatment. Review of Systems Review of Systems: All systems reviewed & are unremarkable except as noted in HPI and below (HPI) PMFSH Past Medical History Medical History Arthritis Migraine Hyperlipidemia Thyroid cancer Hypertension Surgical History Surgical History H/O thyroidectomy History of lumbar laminectomy Hx of left inguinal hernia repair Family History Family History Father Heart disease COPD (chronic obstructive pulmonary disease) Mother Age related osteoporosis Grandparent Cerebrovascular accident Pancreatic cancer Multiple myeloma Melanoma Diabetes mellitus Hypertension Grandparent Heart disease Social History Social History Smoking packs per day: 0.25 Smoking cigarettes per day: 5.0 Years smoked: 1 Smoking pack-years: 0.25 Smoking status: Never smoker Second hand tobacco smoke exposure: No Smoking end date: 07/26/78 Alcohol intake: current Drinks per week: 6 Alcohol use details: 5 to 7 drinks a week. Substance use: never Substance use type: does not use Do You Feel Safe in your Home?: Yes Lack of Transportation: No Lack of Food: Never True Current Housing: I Have Housing Concerned About Future Housing: No Difficulty Paying Gas/Electric Bills: No Difficulty Paying for Meds: No Currently Unemployed: No Education: Associate Degree Difficulty w/ Childcare or Family Care: No Living arrangements: with family Additional living arrangements comments: Occupation/Education: occupation Gender identity (if verbalized by the patient): Male Sexual Orientation (if Verbalized by the Patient): Straight or Heterosexual Spiritual care concerns: Yes Agree to blood products: Yes Meds Home Medications and Allergies Home Medications ?Medication ?Instructions ?Recorded ?Confirmed ?Type finasteride 5 mg tablet 5 mg PO DAILY 04/18/23 12/14/24 History tamsulosin 0.4 mg capsule 0.4 mg PO Q24H 04/18/23 12/14/24 History rizatriptan 10 mg disintegrating See Rx Instructions PO .COMPLEX 01/26/24 12/14/24 Rx tablet #10 tabs triamterene 37.5 1 tablet PO QAM #90 tabs 03/28/24 12/14/24 Rx mg-hydrochlorothiazide 25 mg tablet simvastatin 40 mg tablet 40 mg PO HS #90 tabs 05/17/24 12/14/24 Rx meloxicam 15 mg tablet 15 mg PO DAILY #30 tabs 07/09/24 12/14/24 Rx buspirone 10 mg tablet See Rx Instructions .Route 08/01/24 12/14/24 Rx .COMPLEX #270 tabs flecainide 50 mg tablet 100 mg PO Q12H 09/21/24 12/14/24 History propranolol 120 mg capsule,24 120 mg PO BID #1 cap 09/21/24 12/14/24 Rx hr,extended release (Inderal LA) ibuprofen 600 mg tablet 600 mg PO Q6H PRN pain #14 tabs 12/11/24 12/14/24 Rx levothyroxine 150 mcg tablet 175 mcg PO DAILY 12/14/24 12/14/24 History (Levo-T) oxycodone-acetaminophen 5 mg-325 0.5 - 1 tablet PO Q4H PRN pain #10 12/14/24 12/14/24 Rx mg tablet (Percocet) tabs Allergies Allergy/AdvReac Type Severity Reaction Status Date / Time Penicillins Allergy Severe IRRITATION/SWELLING Verified 12/11/24 12:10 IN THROAT Vital Signs Vital Signs - 24 hr 12/14/24 18:05 12/14/24 18:36 12/14/24 20:00 Temperature 36.9 C 36.6 C Pulse Rate 72 72 55 L Respiratory Rate 18 18 20 Blood Pressure 116/62 116/59 L Pulse Oximetry 94 94 94 Oxygen Delivery Room Air 12/14/24 20:00 12/14/24 20:33 12/14/24 23:35 Temperature 36.6 C 36.7 C Pulse Rate 55 L 62 Respiratory Rate 20 18 Blood Pressure 116/59 L 110/55 L Pulse Oximetry 94 95 Oxygen Delivery Room Air 12/15/24 04:00 12/15/24 04:06 Temperature 36.6 C 36.6 C Pulse Rate 62 62 Respiratory Rate 20 20 Blood Pressure 100/48 L 100/48 L Pulse Oximetry 91 91 Oxygen Delivery Exam Const: General: comfortable, no acute distress, alert, awake and anxious HENMT: Head: normocephalic and atraumatic Mouth: Yes Normal oral and palatal mucosa present Eyes: Conjunctivae: conjunctivae normal Pupils: Equal, round and reactive pupils present EOM: EOMs intact bilaterally Neck: Neck: normal visual inspection, no lymphadenopathy and nontender Resp: Effort & Inspection: normal respiratory effort Auscultation: clear to auscultation bilaterally Cardio: Rate: regular rate Rhythm: regular rhythm Heart sounds: no gallops, no murmurs and no rubs GI: Inspection: abdominal wall ecchymosis, non-distended, incision (All incisions dry and healing appropriately) and scaphoid GI Palp: Yes Soft to palpation, Yes Tenderness to palpation present (GI), No Guarding due to palpation present (GI), No Hepatomegaly present and No Splenomegaly present Auscultation: normal bowel sounds : Male General Exam: Yes ecchymosis, No hernia and Yes tenderness Penis: Yes ecchymosis and Yes Localized penile swelling present Scrotum: ecchymosis and scrotal swelling Testes: testicular swelling bilateral (Mild bilateral swelling,) and testicular tenderness bilateral (Moderate) Skin: Lesions: no lesions Rashes: no rashes Neuro: General: no focal motor deficits and CN's II-XI intact bilaterally Cranial nerves: Yes Equal, round and reactive pupils present, Yes Bilaterally intact EOM present, Yes facial symmetry and Yes Midline tongue present Speech: normal speech Motor exam (neuro): 5/5 motor strength present throughout and Motor abnormalities not present Extrem: General: no clubbing, cyanosis or edema and edema Psych: Appearance: well kempt Speech and movement: Clear speech present Affect: Anxious affect present Attitude: cooperative Thought process: Normal thought process present Insight: Good insight present (Psych) Judgement: Good judgement present (Psych) H&P: Results Labs Labs: Short CBC 12/15/24 Range/Units 03:39 WBC 13.2 H (4.5-10.0) K/mm3 Hgb 9.7 L (14.0-18.0) g/dL Hct 27.9 L (42.0-52.0) % Plt Count 150 (150-375) k/mm3 BMP 12/15/24 03:39 Sodium 130 L Potassium 3.2 L Chloride 96 L Carbon Dioxide 29 BUN 17 Creatinine 1.04 Glucose 131 H Calcium 8.4 Assessment and Plan Assessment and plan (1) Postoperative lower abdominal pain: Code(s): G89.18 - Other acute postprocedural pain; R10.30 - Lower abdominal pain, unspecified Status: Acute Assessment and Plan: Patient has increased postoperative pain following bilateral robotic inguinal hernia repair, the left side was a recurrent hernia. I removed shrunken mesh plug associated with the direct hernia recurrence. Extricating the mesh plug was bloody and I suspect this is the source of his excessive bruising, pain, and decrease in H&H. Scrotal Doppler does not suggest ischemia to the testicles. White blood cell count is better today but H&H is lower. Continue to monitor. (2) S/P bilateral inguinal hernia repair: Code(s): Z98.890 - Other specified postprocedural states; Z87.19 - Personal history of other diseases of the digestive system Status: Acute Assessment and Plan: Performed 4 days ago, 12/11/2024 (3) Acute postoperative anemia due to greater than expected blood loss: Code(s): D62 - Acute posthemorrhagic anemia Status: Acute Assessment and Plan: Do not feel patient is actively bleeding but did have more blood loss than usual and probably some dilutional effect. Hemodynamically stable. (4) Hypertension: Qualifiers: Hypertension type: essential hypertension Qualified Code(s): I10 - Essential (primary) hypertension Code(s): I10 - Essential (primary) hypertension Status: Chronic (5) Arrhythmia: Qualifiers: Arrhythmia type: other ventricular tachycardia Qualified Code(s): I47.29 - Other ventricular tachycardia Code(s): I49.9 - Cardiac arrhythmia, unspecified Status: Chronic Assessment and Plan: Known to have multiple PVCs and short, nonsustained, runs of V-tach. Evaluated by Cardiology at [facility]. Diagnosis of abdominal aortic aneurysm is in error-ultrasound and CT scans show there is no abdominal aortic aneurysm. (6) BPH (benign prostatic hyperplasia): Qualifiers: Lower urinary tract symptom presence: symptoms absent Qualified Code(s): N40.0 - Benign prostatic hyperplasia without lower urinary tract symptoms Code(s): N40.0 - Benign prostatic hyperplasia without lower urinary tract symptoms Status: Chronic (7) Hypothyroidism: Qualifiers: Hypothyroidism type: postoperative Qualified Code(s): E89.0 - Postprocedural hypothyroidism Code(s): E03.9 - Hypothyroidism, unspecified Status: Chronic (8) Subcutaneous mass of abdominal wall: Code(s): R22.2 - Localized swelling, mass and lump, trunk Status: Acute Assessment and Plan: Path shows this to be a lipoma. Removed 12/11/2024. Wound healing well.
[2024-12-15] MEDS: PROMETHAZINE HCL 25 MG/ML AMPUL 12.5 MG IV PUSH (10:04)
[2024-12-15] MEDS: PROPRANOLOL HCL 60 MG CAPSULE CR 120 MG PO ×2 (10:05→17:27)
[2024-12-15] MEDS: FLECAINIDE ACETATE 100 MG TABLET PO ×2 (10:05→23:30)
[2024-12-15] MEDS: FINASTERIDE 5 MG TABLET PO (10:05)
[2024-12-15] MEDS: TRIAMTERENE 37.5 MG/HCTZ 25 MG (MAXZIDE) TABLET 1 TAB PO (10:06)
[2024-12-15] MEDS: KCL 40 MEQ/0.9% SOD CHL 1,000 ML 60 ML IV CONT (10:07)
[2024-12-15] MEDS: polyethylene glycoL 3350 17 GM POWD.PACK PO (10:07)
[2024-12-15] MEDS: TAMSULOSIN HCL 0.4 MG CAPSULE PO (10:07)
[2024-12-15] MEDS: POTASSIUM CHLORIDE 20 MEQ ER TABLET PO (10:07)
[2024-12-15] MEDS: HYDROmorphone HCL INJ (*CRX) 2 MG/ML VIAL 1 MG IV PUSH ×2 (10:16→15:14)
--- NOTE | 2024-12-15 19:00 | P.CONIM_ITS ---
Assessment and Plan Assessment and plan (1) Postoperative lower abdominal pain: Code(s): G89.18 - Other acute postprocedural pain; R10.30 - Lower abdominal pain, unspecified Status: Acute Assessment and Plan: Patient had greater than expected blood loss during surgery extricate eating mesh plug from prior hernia repair which is felt to be the cause of his excess bruising and pain as well as decrease in H&H. Scrotal ultrasound without evidence of ischemia. * Wound care, pain control, and DVT prophylaxis deferred to primary service. * Continue empiric antibiotics per primary team. * Repeat CBC in a.m.. L (2) Status post bilateral inguinal hernia repair: Code(s): Z98.890 - Other specified postprocedural states; Z87.19 - Personal history of other diseases of the digestive system Status: Acute Assessment and Plan: Plan is as detailed above. L (3) Acute postoperative anemia due to greater than expected blood loss: Code(s): D62 - Acute posthemorrhagic anemia Status: Acute Assessment and Plan: Plan is as detailed above. L (4) Electrolyte abnormality: Code(s): E87.8 - Other disorders of electrolyte and fluid balance, not elsewhere classified Status: Acute Assessment and Plan: Sodium, potassium, and chloride were a bit low this morning. * Received potassium chloride 20 mEq p.o. and 40 mEq IV. * Give 1 L normal saline overnight. * Hold triamterene/hydrochlorothiazide for now. * Repeat electrolytes in a.m. L (5) Hypothyroidism: Qualifiers: Hypothyroidism type: postoperative Qualified Code(s): E89.0 - Postprocedural hypothyroidism Code(s): E03.9 - Hypothyroidism, unspecified Status: Chronic Assessment and Plan: Continue levothyroxine; recent TSH was within normal limits. L (6) Benign prostatic hyperplasia: Code(s): N40.0 - Benign prostatic hyperplasia without lower urinary tract symptoms Status: Acute Assessment and Plan: Bladder scan as needed; continue tamsulosin. L (7) Nonsustained ventricular tachycardia: Code(s): I47.29 - Other ventricular tachycardia Status: Acute Assessment and Plan: Continue flecainide for history of PVCs and short runs of NSVT. L Plan Thank you for allowing us to participate in this patient's care. Please do not hesitate to contact us with any questions. HPI Date of Consult Consult date: 12/16/24 Requesting Physician: Saeid Uriostegui MD Consult Narrative Reason for consult: medical management Narrative: This is a pleasant 64-year-old male with history of hypertension, hyperlipidemia, hypothyroidism, benign prostatic hyperplasia, nonsustained ventricular tachycardia on flecainide, depression, and anxiety whom the hospitalist service has been consulted for help managing the patient's medical conditions. He underwent robotic laparoscopic repair of a recurrent left inguinal hernia as well as repair of a right inguinal hernia on 12/11/2024. Yesterday he spoke with the surgeon's office due to significant pain in the testicles with bruising and nausea. Lab work was significant for a WBC count of 20 with a decrease in hemoglobin from 15 to 11.2. Ultrasound of the testicles showed blood flow to each although on the left side the amplitudes were not as great as on the right. He was admitted yesterday for pain control, monitoring, and IV antibiotics. At the time my evaluation he complains of of a developing migraine for which he was given his rizatriptan. He thinks the swelling and the pain in his scrotum is improving. He continues to have bit of a decreased appetite. No fever, chest pain, shortness of breath, vomiting, or diarrhea (no bowel movement for several days). Review of Systems 2 Review of Systems: 12 systems were reviewed and are negativ e except for as per HPI. [facility] Past Medical History Medical History (Updated 12/15/24 @ 21:40 by Jayne Rodriguez PA-C) Depression with anxiety Benign prostatic hyperplasia Nonsustained ventricular tachycardia History of NSVT and PVCs maintained on flecainide and followed by cardiology at [facility]. Arthritis Migraine Hyperlipidemia Thyroid cancer Hypertension Surgical History Surgical History (Updated 12/15/24 @ 21:36 by Jayne Rodriguez PA-C) History of bilateral inguinal hernia repair History of thyroidectomy History of lumbar laminectomy Family History Family History Father Heart disease COPD (chronic obstructive pulmonary disease) Mother Age related osteoporosis Grandparent Cerebrovascular accident Pancreatic cancer Multiple myeloma Melanoma Diabetes mellitus Hypertension Grandparent Heart disease Social History Social History (Updated 12/15/24 @ 21:34 by Jayne G Gerling, PA-C) Social History: Surrogate medical decision maker: Ligia Car, spouse. Code status: Full code. Smoking packs per day: 0.25 Smoking cigarettes per day: 5.0 Years smoked: 1 Smoking pack-years: 0.25 Smoking status: Former smoker Second hand tobacco smoke exposure: No Smoking end date: 07/26/78 Alcohol intake: current Drinks per week: 6 Alcohol use details: 5 to 7 drinks a week. Substance use: never Substance use type: does not use Do You Feel Safe in your Home?: Yes Lack of Transportation: No Lack of Food: Never True Current Housing: I Have Housing Concerned About Future Housing: No Difficulty Paying Gas/Electric Bills: No Difficulty Paying for Meds: No Currently Unemployed: No Education: Associate Degree Difficulty w/ Childcare or Family Care: No Living arrangements: with family Additional living arrangements comments: Lives with in [place]. 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 Spiritual care concerns: Yes Agree to blood products: Yes Meds Home Medications and Allergies Home Medications ?Medication ?Instructions ?Recorded ?Confirmed ?Type finasteride 5 mg tablet 5 mg PO DAILY 04/18/23 12/14/24 History tamsulosin 0.4 mg capsule 0.4 mg PO Q24H 04/18/23 12/14/24 History rizatriptan 10 mg disintegrating See Rx Instructions PO .COMPLEX 01/26/24 12/14/24 Rx tablet #10 tabs triamterene 37.5 1 tablet PO QAM #90 tabs 03/28/24 12/14/24 Rx mg-hydrochlorothiazide 25 mg tablet simvastatin 40 mg tablet 40 mg PO HS #90 tabs 05/17/24 12/14/24 Rx meloxicam 15 mg tablet 15 mg PO DAILY #30 tabs 07/09/24 12/14/24 Rx buspirone 10 mg tablet See Rx Instructions .Route 08/01/24 12/14/24 Rx .COMPLEX #270 tabs flecainide 50 mg tablet 100 mg PO Q12H 09/21/24 12/14/24 History propranolol 120 mg capsule,24 120 mg PO BID #1 cap 09/21/24 12/14/24 Rx hr,extended release (Inderal LA) ibuprofen 600 mg tablet 600 mg PO Q6H PRN pain #14 tabs 12/11/24 12/14/24 Rx levothyroxine 150 mcg tablet 175 mcg PO DAILY 12/14/24 12/14/24 History (Levo-T) oxycodone-acetaminophen 5 mg-325 0.5 - 1 tablet PO Q4H PRN pain #10 12/14/24 12/14/24 Rx mg tablet (Percocet) tabs Allergies Allergy/AdvReac Type Severity Reaction Status Date / Time Penicillins Allergy Severe IRRITATION/SWELLING Verified 12/11/24 12:10 IN THROAT Vital Signs Vital Signs - 24 hr 12/14/24 20:00 12/14/24 20:00 12/14/24 20:33 Temperature 97.9 F 97.9 F Pulse Rate 55 L 55 L Respiratory Rate 20 20 Blood Pressure 116/59 L 116/59 L Pulse Oximetry 94 94 Oxygen Delivery Room Air 12/14/24 23:35 12/15/24 04:00 12/15/24 04:06 Temperature 98.0 F 97.8 F 97.8 F Pulse Rate 62 62 62 Respiratory Rate 18 20 20 Blood Pressure 110/55 L 100/48 L 100/48 L Pulse Oximetry 95 91 91 Oxygen Delivery 12/15/24 08:00 12/15/24 10:05 12/15/24 10:05 Temperature 97.4 F L Pulse Rate 71 71 71 Respiratory Rate 18 Blood Pressure 114/71 Pulse Oximetry 98 Oxygen Delivery 12/15/24 10:05 12/15/24 12:00 12/15/24 16:00 Temperature 97.8 F 97.9 F Pulse Rate 68 68 Respiratory Rate 18 18 Blood Pressure 110/68 100/61 Pulse Oximetry 99 93 Oxygen Delivery Room Air 12/15/24 17:27 Temperature Pulse Rate 70 Respiratory Rate Blood Pressure Pulse Oximetry Oxygen Delivery Exam 2 Narrative: General: Nontoxic-appearing male supine in bed in no distress. Weight: 75.5 kg. BMI: 22.6. HEENT: PERRL, EOMI. Sclera anicteric. Tacky mucous membranes. Neck: Supple. Respiratory: Lungs are clear to auscultation bilaterally. Cardiovascular: Regular rate and rhythm with S1-S2. Gastrointestinal: Abdomen is soft, nontender, and nondistended with positive bowel sounds. Genitourinary: Exam deferred. Skin: Warm and dry. Mild pallor. Extremities: No cyanosis, clubbing, or edema. Radial and pedal pulses intact. Neurological: Alert. Cranial nerves 2-12 are grossly intact. No gross focal deficits to casual conversation. Psychiatric: Pleasant and cooperative with normal mood and affect. Judgment and insight intact. Results Labs 12/15/24 03:39 12/15/24 03:39 Labs: Short CBC 12/15/24 Range/Units 03:39 WBC 13.2 H (4.5-10.0) K/mm3 Hgb 9.7 L (14.0-18.0) g/dL Hct 27.9 L (42.0-52.0) % Plt Count 150 (150-375) k/mm3 BMP 12/15/24 03:39 Sodium 130 L Potassium 3.2 L Chloride 96 L Carbon Dioxide 29 BUN 17 Creatinine 1.04 Glucose 131 H Calcium 8.4 Hospitalist MIPS Advance Care Plan I have confirmed that the patient's Advanced Care Plan is present, code status is documented, or surrogate decision maker is listed in patient medical record.: Yes Medication Reconciliation I have utilized all available resources to obtain, update and review the patients current medications (includes all prescriptions, OTC, herbals, cannabis, and nutritional supplements).: Yes
[2024-12-15] MEDS: SENNA/DOCUSATE SODIUM TABLET 2 TAB PO (20:17)
[2024-12-15] MEDS: SIMVASTATIN 20 MG TABLET 40 MG PO (20:18)
[2024-12-15] MEDS: HYDROcodone/acetaminophen (*CRX) 10-325 MG TABLET 1 TAB PO (20:19)
[2024-12-15] MEDS: RIZATRIPTAN BENZOATE 10 MG ODT BY MOUTH (22:39)
[2024-12-15] MEDS: SODIUM CHLORIDE 0.9% IV 1,000 ML 75 ML IV CONT (23:10)
--- NOTE | 2024-12-15 23:20 | PC.NURSE ---
flecainide held due to low blood pressure and pain medication given. I informed Jayne BARRERA informed of patient's low blood pressure (95/51) and Jayne instructed me to administer flecainide now
[2024-12-16] MEDS: CLINDAMYCIN 900 MG/D5W 50 ML 900 MG/50 ML PIGGYBACK 50 MG IVPB ×2 (01:39→09:45)
[2024-12-16 03:53] VITALS: BP 98/42; PULSE 59; RESP 16; TEMP 36.6; O2SAT 94
[2024-12-16 04:50] LABS: Hematocrit 26.9 % (42.0-52.0); Mean Corpuscular HGB Conc 33.5 g/dl (32-36); Mean Corpuscular Hemoglobin 33.3 pg (26-34); Mean Corpuscular Volume 99.6 fl (80-100); Mean Platelet Volume 10.8 fl (7.4-10.4); Platelet Count Result 168 k/mm3 (150-375); Red Cell Distribution Width 12.3 % (11.5-14.5); White Blood Count 8.5 K/mm3 (4.5-10.0)
[2024-12-16 05:02] LABS: INR 1.1; Prothrombin Time 14.5 Seconds (11.1-14.7)
[2024-12-16 05:03] LABS: Partial Thromboplastin Time 35.8 Seconds (22.3-36.8)
[2024-12-16 05:12] LABS: Anion Gap 4 mmol/L (4-12); Blood Urea Nitrogen 15 mg/dL (9-20); Calcium 8.3 mg/dL (8.4-10.2); Carbon Dioxide 29 mmol/L (22-30); Chloride 102 mmol/L (98-107); Estimated CRCL calculation 67 ml/min; Estimated Glomerular Filt Rate > 60; Glucose 97 mg/dL (65-110); Magnesium 1.8 mg/dL (1.6-2.3); Potassium 3.7 mmol/L (3.4-5.0); Sodium 135 mmol/L (137-145)
[2024-12-16 05:21] LABS: CRP 13.6 mg/dL (<1.0)
[2024-12-16] MEDS: LEVOTHYROXINE SODIUM 75 MCG TABLET PO (05:48)
[2024-12-16] MEDS: HYDROcodone/acetaminophen (*CRX) 5-325 MG TABLET 1 TAB PO ×2 (05:49→12:54)
[2024-12-16] MEDS: LEVOTHYROXINE SODIUM 100 MCG TABLET PO (05:49)
--- NOTE | 2024-12-16 09:01 | P.PNIM_ITS ---
Progress Note: A&P Assessment and Plan (1) Postoperative lower abdominal pain: Code(s): G89.18 - Other acute postprocedural pain; R10.30 - Lower abdominal pain, unspecified Status: Acute Assessment and Plan: Patient had greater than expected blood loss during surgery extricate eating mesh plug from prior hernia repair which is felt to be the cause of his excess bruising and pain as well as decrease in H&H. Scrotal ultrasound without evidence of ischemia. * Wound care, pain control, and DVT prophylaxis deferred to primary service. * Continue empiric antibiotics per primary team. * Repeat CBC in a.m.. (2) Status post bilateral inguinal hernia repair: Code(s): Z98.890 - Other specified postprocedural states; Z87.19 - Personal history of other diseases of the digestive system Status: Acute Assessment and Plan: Plan is as detailed above. (3) Acute postoperative anemia due to greater than expected blood loss: Code(s): D62 - Acute posthemorrhagic anemia Status: Acute Assessment and Plan: Plan is as detailed above. (4) Electrolyte abnormality: Code(s): E87.8 - Other disorders of electrolyte and fluid balance, not elsewhere classified Status: Acute Assessment and Plan: Sodium, potassium, and chloride were a bit low this morning. * Received potassium chloride 20 mEq p.o. and 40 mEq IV. * Give 1 L normal saline overnight. * Hold triamterene/hydrochlorothiazide for now. * Repeat electrolytes in a.m. (5) Hypothyroidism: Qualifiers: Hypothyroidism type: postoperative Qualified Code(s): E89.0 - Postprocedural hypothyroidism Code(s): E03.9 - Hypothyroidism, unspecified Status: Chronic Assessment and Plan: Continue levothyroxine; recent TSH was within normal limits. L (6) Benign prostatic hyperplasia: Code(s): N40.0 - Benign prostatic hyperplasia without lower urinary tract symptoms Status: Acute Assessment and Plan: Bladder scan as needed; continue tamsulosin. (7) Nonsustained ventricular tachycardia: Code(s): I47.29 - Other ventricular tachycardia Status: Acute Assessment and Plan: Continue flecainide for history of PVCs and short runs of NSVT. Plan Thank you for allowing us to participate in this patient's care. Please do not hesitate to contact us with any questions. Subjective Date/time seen: 12/16/24 09:01 Review of Systems Review of Systems: 12 systems were reviewed and are negativ e except for as per HPI. Exam Narrative: General: Nontoxic-appearing male supine in bed in no distress. Weight: 75.5 kg. BMI: 22.6. HEENT: PERRL, EOMI. Sclera anicteric. Tacky mucous membranes. Neck: Supple. Respiratory: Lungs are clear to auscultation bilaterally. Cardiovascular: Regular rate and rhythm with S1-S2. Gastrointestinal: Abdomen is soft, nontender, and nondistended with positive bowel sounds. Genitourinary: Exam deferred. Skin: Warm and dry. Mild pallor. Extremities: No cyanosis, clubbing, or edema. Radial and pedal pulses intact. Neurological: Alert. Cranial nerves 2-12 are grossly intact. No gross focal deficits to casual conversation. Psychiatric: Pleasant and cooperative with normal mood and affect. Judgment and insight intact. Objective Data Vital Signs Vital Signs: Vital Signs - 24 hr 12/15/24 10:05 12/15/24 10:05 12/15/24 10:05 Temperature Pulse Rate 71 71 Respiratory Rate Blood Pressure Pulse Oximetry Oxygen Delivery Room Air 12/15/24 12:00 12/15/24 16:00 12/15/24 17:27 Temperature 97.8 F 97.9 F Pulse Rate 68 68 70 Respiratory Rate 18 18 Blood Pressure 110/68 100/61 Pulse Oximetry 99 93 Oxygen Delivery 12/15/24 20:00 12/15/24 20:00 12/15/24 23:14 Temperature 98.6 F 98.4 F Pulse Rate 63 60 Respiratory Rate 18 17 Blood Pressure 105/56 L 95/51 L Pulse Oximetry 99 96 Oxygen Delivery Room Air 12/15/24 23:30 12/16/24 03:53 Temperature 97.9 F Pulse Rate 66 59 L Respiratory Rate 16 Blood Pressure 98/42 L Pulse Oximetry 94 Oxygen Delivery Intake/Output Intake/Output: Intake & Output 12/13/24 12/14/24 12/15/24 12/16/24 23:59 23:59 23:59 23:59 Intake Total 100 1090 1350 Balance 100 1090 1350 Meds/Results Medications: Active Medications Generic Name Dose Route Start Last Admin Trade Name Freq PRN Reason Stop Dose Admin Acetaminophen 500 mg 12/14/24 17:16 Acetaminophen 500 Mg Tablet PO Q6H PRN Pain Rated 1-3 Hydrocodone Bitart/Acetaminophen 1 tab 12/14/24 17:16 12/16/24 05:49 Hydrocodone/Acetaminophen (*Crx) 5-325 Mg Tablet PO 1 tab Q4H PRN Administration Pain Rated 4-6 Hydrocodone Bitart/Acetaminophen 1 tab 12/14/24 17:16 12/15/24 20:19 Hydrocodone/Acetaminophen (*Crx) 10-325 Mg Tablet PO 1 tab Q4H PRN Administration Pain Rated 7-10 Finasteride 5 mg 12/15/24 09:00 12/15/24 10:05 Finasteride 5 Mg Tablet PO 5 mg DAILY RIN Administration Flecainide Acetate 100 mg 12/15/24 09:00 12/15/24 23:30 Flecainide Acetate 100 Mg Tablet PO 100 mg Q12HR RIN Administration Hydromorphone HCl 0.5 mg 12/14/24 17:25 12/15/24 06:58 Hydromorphone Hcl Inj (*Crx) 2 Mg/Ml Vial IV PUSH 0.5 mg Q2H PRN Administration Breakthrough Pain Rated 4-6 or NPO Hydromorphone HCl 1 mg 12/14/24 18:04 12/15/24 15:14 Hydromorphone Hcl Inj (*Crx) 2 Mg/Ml Vial IV PUSH 1 mg Q2H PRN Administration Breakthrough Pain Rated 7-10 or NPO Ibuprofen 800 mg in 200 mls @ 400 mls/hr 12/14/24 17:11 Caldolor 800 Mg/200 Ml IVPB Q6H PRN Breakthrough Pain Rated 1-3 or NPO Clindamycin Phosphate 900 mg in 50 mls @ 50 mls/hr 12/14/24 18:00 12/16/24 02:46 Cleocin 900 Mg/D5w 50 Ml IVPB Infused Q8H RIN Infusion Potassium Chloride/Sodium Chloride 1,000 mls @ 60 mls/hr 12/15/24 09:10 12/16/24 02:49 Kcl 40 Meq/Ns IV CONT Infused .[id number] RIN Infusion Sodium Chloride 1,000 mls @ 75 mls/hr 12/15/24 21:42 12/15/24 23:10 Normal Saline Iv IV CONT 12/16/24 11:01 75 mls/hr .[id number] ONE Administration Levothyroxine Sodium 100 mcg 12/16/24 06:30 12/16/24 05:49 Levothyroxine Sodium 100 Mcg Tablet PO 100 mcg DAILY@0630 RIN Administration Levothyroxine Sodium 75 mcg 12/16/24 06:30 12/16/24 05:48 Levothyroxine Sodium 75 Mcg Tablet PO 75 mcg DAILY@0630 RIN Administration Naloxone HCl 0.1 mg 12/14/24 17:11 Naloxone Hcl 0.4 Mg/Ml Vial IV PUSH Q2M PRN Opiate Reversal Polyethylene Glycol 17 gm 12/15/24 09:00 12/15/24 10:07 Polyethylene Glycol 3350 17 Gm Powd.Pack PO 17 gm QAM RIN Administration Potassium Chloride 20 meq 12/16/24 08:00 Potassium Chloride 20 Meq Er Tablet PO DAILY@0800 [facility] Promethazine HCl 12.5 mg 12/15/24 08:38 12/15/24 10:04 Promethazine Hcl 25 Mg/Ml Ampul IV PUSH 12.5 mg Q4H PRN Administration Nausea And Vomiting Propranolol HCl 120 mg 12/15/24 09:00 12/15/24 17:27 Propranolol Hcl 60 Mg Capsule Cr PO 120 mg BID RIN Administration Rizatriptan Benzoate 10 mg 12/15/24 08:52 12/15/24 22:39 Rizatriptan Benzoate 10 Mg Odt BY MOUTH 10 mg PRN PRN Administration Migraine Headache Senna/Docusate Sodium 2 tab 12/14/24 21:00 12/15/24 20:17 Senna/Docusate Sodium Tablet PO 2 tab HS RIN Administration Simvastatin 40 mg 12/15/24 21:00 12/15/24 20:18 Simvastatin 20 Mg Tablet PO 40 mg HS RIN Administration Tamsulosin HCl 0.4 mg 12/15/24 09:00 12/15/24 10:07 Tamsulosin Hcl 0.4 Mg Capsule PO 0.4 mg DAILY RIN Administration Triamterene/Hydrochlorothiazide 1 tab 12/15/24 09:00 12/15/24 10:06 Triamterene 37.5 Mg/Hctz 25 Mg (Maxzide) Tablet PO 1 tab QAM RIN Administration Labs Labs: Laboratory Results - last 24 hr 12/16/24 04:14 WBC 8.5 RBC 2.70 L Hgb 9.0 L Hct 26.9 L MCV 99.6 MCH 33.3 MCHC 33.5 RDW 12.3 Plt Count 168 MPV 10.8 H PT 14.5 INR 1.1 APTT 35.8 Sodium 135 L Potassium 3.7 Chloride 102 Carbon Dioxide 29 Anion Gap 4 BUN 15 Creatinine 1.04 Estim Creat Clear Calc 67 Estimated GFR > 60 Glucose 97 Calcium 8.3 L Magnesium 1.8 C-Reactive Protein 13.6 H
--- NOTE | 2024-12-16 09:05 | P.CONIM_ITS ---
Assessment and Plan Assessment and plan (1) Postoperative lower abdominal pain: Code(s): G89.18 - Other acute postprocedural pain; R10.30 - Lower abdominal pain, unspecified Status: Acute Assessment and Plan: Patient had greater than expected blood loss during surgery extricate eating mesh plug from prior hernia repair which is felt to be the cause of his excess bruising and pain as well as decrease in H&H. Scrotal ultrasound without evidence of ischemia. * Wound care, pain control, and DVT prophylaxis deferred to primary service. * Continue empiric antibiotics per primary team. * Repeat CBC in a.m.. Lhg 9/hct 26.9 no s/s of bleeding, abd exam is unremarkable no dizziness (2) Status post bilateral inguinal hernia repair: Code(s): Z98.890 - Other specified postprocedural states; Z87.19 - Personal history of other diseases of the digestive system Status: Acute Assessment and Plan: Plan is as detailed above. L (3) Acute postoperative anemia due to greater than expected blood loss: Code(s): D62 - Acute posthemorrhagic anemia Status: Acute Assessment and Plan: Plan is as detailed above. Lpt is still receiving IV fluids. if he is drinking and eating ok- would be fine to stop. hg is 9 but could be due to iv fluids as no reports of blood in urine and stool and abd exam is benign. (4) Electrolyte abnormality: Code(s): E87.8 - Other disorders of electrolyte and fluid balance, not elsewhere classified Status: Acute Assessment and Plan: Sodium, potassium, and chloride were a bit low this morning. * Received potassium chloride 20 mEq p.o. and 40 mEq IV. * Give 1 L normal saline overnight. * Hold triamterene/hydrochlorothiazide for now. * Repeat electrolytes in a.m. L5/24- k 3.7, na 135, chloride 102-improved and stable (5) Hypothyroidism: Qualifiers: Hypothyroidism type: postoperative Qualified Code(s): E89.0 - Postprocedural hypothyroidism Code(s): E03.9 - Hypothyroidism, unspecified Status: Chronic Assessment and Plan: Continue levothyroxine; recent TSH was within normal limits. L (6) Benign prostatic hyperplasia: Code(s): N40.0 - Benign prostatic hyperplasia without lower urinary tract symptoms Status: Acute Assessment and Plan: Bladder scan as needed; continue tamsulosin. L (7) Nonsustained ventricular tachycardia: Code(s): I47.29 - Other ventricular tachycardia Status: Acute Assessment and Plan: Continue flecainide for history of PVCs and short runs of NSVT. L Plan Thank you for allowing us to participate in this patient's care. Please do not hesitate to contact us with any questions. HPI Date of Consult Consult date: 12/16/24 Requesting Physician: Saeid Uriostegui MD Primary Care Provider: Nguyen Key MD Consult Narrative Reason for consult: medical mngmnt Narrative: 64-year-old male with PMH/of HTN, hyperlipidemia, hypothyroidism, benign prostatic hyperplasia, nonsustained ventricular tachycardia on flecainide, depression, and anxiety whom the hospitalist service has been consulted for help managing the patient's medical conditions. He underwent robotic laparoscopic repair of a recurrent left inguinal hernia as well as repair of a right inguinal hernia on 12/11/2024. Yesterday he spoke with the surgeon's office due to significant pain in the testicles with bruising and nausea. Lab work was significant for a WBC count of 20 with a decrease in hemoglobin from 15 to 11.2. Ultrasound of the testicles showed blood flow to each although on the left side the amplitudes were not as great as on the right. He was admitted yesterday for pain control, monitoring, and IV antibiotics. Swelling and the pain in his scrotum is improving, somewhat decreased appetite but no n/v. Denies fever, chest pain, shortness of breath, vomiting, or diarrhea. 12/16- wbc improved to 8.5, hg 9. no reported blood in urine, stool. abd is soft. Review of Systems 2 Review of Systems: 12 systems were reviewed and are negativ e except for as per HPI. [facility] Past Medical History Medical History (Updated 12/15/24 @ 21:40 by Jayne Rodriguez PA-C) Depression with anxiety Benign prostatic hyperplasia Nonsustained ventricular tachycardia History of NSVT and PVCs maintained on flecainide and followed by cardiology at [facility]. Arthritis Migraine Hyperlipidemia Thyroid cancer Hypertension Surgical History Surgical History (Updated 12/15/24 @ 21:36 by Jayne Rodriguez PA-C) History of bilateral inguinal hernia repair History of thyroidectomy History of lumbar laminectomy Family History Family History Father Heart disease COPD (chronic obstructive pulmonary disease) Mother Age related osteoporosis Grandparent Cerebrovascular accident Pancreatic cancer Multiple myeloma Melanoma Diabetes mellitus Hypertension Grandparent Heart disease Social History Social History (Updated 12/15/24 @ 21:34 by Jayne Rodriguez PA-C) Social History: Surrogate medical decision maker: Ligia Car, spouse. Code status: Full code. Smoking packs per day: 0.25 Smoking cigarettes per day: 5.0 Years smoked: 1 Smoking pack-years: 0.25 Smoking status: Former smoker Second hand tobacco smoke exposure: No Smoking end date: 07/26/78 Alcohol intake: current Drinks per week: 6 Alcohol use details: 5 to 7 drinks a week. Substance use: never Substance use type: does not use Do You Feel Safe in your Home?: Yes Lack of Transportation: No Lack of Food: Never True Current Housing: I Have Housing Concerned About Future Housing: No Difficulty Paying Gas/Electric Bills: No Difficulty Paying for Meds: No Currently Unemployed: No Education: Associate Degree Difficulty w/ Childcare or Family Care: No Living arrangements: with family Additional living arrangements comments: Lives with in [place]. 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 Spiritual care concerns: Yes Agree to blood products: Yes Meds Home Medications and Allergies Home Medications ?Medication ?Instructions ?Recorded ?Confirmed ?Type finasteride 5 mg tablet 5 mg PO DAILY 04/18/23 12/14/24 History tamsulosin 0.4 mg capsule 0.4 mg PO Q24H 04/18/23 12/14/24 History rizatriptan 10 mg disintegrating See Rx Instructions PO .COMPLEX 01/26/24 12/14/24 Rx tablet #10 tabs triamterene 37.5 1 tablet PO QAM #90 tabs 03/28/24 12/14/24 Rx mg-hydrochlorothiazide 25 mg tablet simvastatin 40 mg tablet 40 mg PO HS #90 tabs 05/17/24 12/14/24 Rx meloxicam 15 mg tablet 15 mg PO DAILY #30 tabs 07/09/24 12/14/24 Rx buspirone 10 mg tablet See Rx Instructions .Route 08/01/24 12/14/24 Rx .COMPLEX #270 tabs flecainide 50 mg tablet 100 mg PO Q12H 09/21/24 12/14/24 History propranolol 120 mg capsule,24 120 mg PO BID #1 cap 09/21/24 12/14/24 Rx hr,extended release (Inderal LA) ibuprofen 600 mg tablet 600 mg PO Q6H PRN pain #14 tabs 12/11/24 12/14/24 Rx levothyroxine 150 mcg tablet 175 mcg PO DAILY 12/14/24 12/14/24 History (Levo-T) oxycodone-acetaminophen 5 mg-325 0.5 - 1 tablet PO Q4H PRN pain #10 12/14/24 12/14/24 Rx mg tablet (Percocet) tabs Allergies Allergy/AdvReac Type Severity Reaction Status Date / Time Penicillins Allergy Severe IRRITATION/SWELLING Verified 12/11/24 12:10 IN THROAT Vital Signs Vital Signs - 24 hr 12/15/24 10:05 12/15/24 10:05 12/15/24 10:05 Temperature Pulse Rate 71 71 Respiratory Rate Blood Pressure Pulse Oximetry Oxygen Delivery Room Air 12/15/24 12:00 12/15/24 16:00 12/15/24 17:27 Temperature 97.8 F 97.9 F Pulse Rate 68 68 70 Respiratory Rate 18 18 Blood Pressure 110/68 100/61 Pulse Oximetry 99 93 Oxygen Delivery 12/15/24 20:00 12/15/24 20:00 12/15/24 23:14 Temperature 98.6 F 98.4 F Pulse Rate 63 60 Respiratory Rate 18 17 Blood Pressure 105/56 L 95/51 L Pulse Oximetry 99 96 Oxygen Delivery Room Air 12/15/24 23:30 12/16/24 03:53 Temperature 97.9 F Pulse Rate 66 59 L Respiratory Rate 16 Blood Pressure 98/42 L Pulse Oximetry 94 Oxygen Delivery Exam 2 Narrative: General: Nontoxic-appearing male supine in bed in no distress. Weight: 75.5 kg. BMI: 22.6. HEENT: PERRL, EOMI. Sclera anicteric. Tacky mucous membranes. Neck: Supple. Respiratory: Lungs are clear to auscultation bilaterally. Cardiovascular: Regular rate and rhythm with S1-S2. Gastrointestinal: Abdomen is soft, nontender, and nondistended with positive bowel sounds. Genitourinary: Exam deferred. Skin: Warm and dry. Mild pallor. Extremities: No cyanosis, clubbing, or edema. Radial and pedal pulses intact. Neurological: Alert. Cranial nerves 2-12 are grossly intact. No gross focal deficits to casual conversation. Psychiatric: Pleasant and cooperative with normal mood and affect. Judgment and insight intact. Const: General: comfortable Results Labs 12/16/24 04:14 12/16/24 04:14 Labs: Short CBC 12/16/24 Range/Units 04:14 WBC 8.5 (4.5-10.0) K/mm3 Hgb 9.0 L (14.0-18.0) g/dL Hct 26.9 L (42.0-52.0) % Plt Count 168 (150-375) k/mm3 BMP 12/16/24 04:14 Sodium 135 L Potassium 3.7 Chloride 102 Carbon Dioxide 29 BUN 15 Creatinine 1.04 Glucose 97 Calcium 8.3 L
[2024-12-16 09:40] VITALS: PULSE 72
[2024-12-16] MEDS: FLECAINIDE ACETATE 100 MG TABLET PO (09:40)
[2024-12-16] MEDS: polyethylene glycoL 3350 17 GM POWD.PACK PO (09:40)
[2024-12-16] MEDS: FINASTERIDE 5 MG TABLET PO (09:40)
[2024-12-16 09:41] VITALS: PULSE 72
[2024-12-16] MEDS: TAMSULOSIN HCL 0.4 MG CAPSULE PO (09:41)
[2024-12-16] MEDS: POTASSIUM CHLORIDE 20 MEQ ER TABLET PO (09:41)
[2024-12-16] MEDS: PROPRANOLOL HCL 60 MG CAPSULE CR 120 MG PO (09:41)
[2024-12-16 11:14] VITALS: BP 119/66; PULSE 63; RESP 16; TEMP 36.8; O2SAT 97
[2024-12-16 14:09] LABS: Hematocrit 27.8 % (42.0-52.0); Hemoglobin 9.2 g/dL (14.0-18.0)
[2024-12-16 14:27] VITALS: BP 109/71; PULSE 60; RESP 16; TEMP 36.7; O2SAT 96
--- NOTE | 2024-12-16 16:42 | PM.DS ---
DS: Admitting Diagnosis Discharge Date 12/16/2024 Admitting Diagnosis postoperative lower abdominal pain, status post bilateral inguinal hernia repair, acute postoperative anemia secondary to blood loss, arrhythmia, hypertension, hypothyroidism, BPH DS: Discharge Diagnosis Discharge Diagnosis (1) Acute postoperative anemia due to greater than expected blood loss: Code(s): D62 - Acute posthemorrhagic anemia Status: Acute (2) S/P bilateral inguinal hernia repair: Code(s): Z98.890 - Other specified postprocedural states; Z87.19 - Personal history of other diseases of the digestive system Status: Acute (3) Postoperative lower abdominal pain: Code(s): G89.18 - Other acute postprocedural pain; R10.30 - Lower abdominal pain, unspecified Status: Acute (4) Arrhythmia: Qualifiers: Arrhythmia type: other ventricular tachycardia Qualified Code(s): I47.29 - Other ventricular tachycardia Code(s): I49.9 - Cardiac arrhythmia, unspecified Status: Chronic (5) Hypertension: Qualifiers: Hypertension type: essential hypertension Qualified Code(s): I10 - Essential (primary) hypertension Code(s): I10 - Essential (primary) hypertension Status: Chronic (6) Hypothyroidism: Qualifiers: Hypothyroidism type: postoperative Qualified Code(s): E89.0 - Postprocedural hypothyroidism Code(s): E03.9 - Hypothyroidism, unspecified Status: Chronic (7) BPH (benign prostatic hyperplasia): Qualifiers: Lower urinary tract symptom presence: symptoms absent Qualified Code(s): N40.0 - Benign prostatic hyperplasia without lower urinary tract symptoms Code(s): N40.0 - Benign prostatic hyperplasia without lower urinary tract symptoms Status: Chronic DS: Summary Hospital Course Reason for hospitalization: Lower abdominal pain, acute blood loss anemia, status post bilateral inguinal hernia repair Hospital Course: This is a 64-year-old man who was admitted on 12/15/2024 with lower abdominal pain and acute blood loss anemia. He had undergone robotic assisted laparoscopic bilateral inguinal hernia repair by Dr. Uriostegui on 12/11/2024. A scrotal ultrasound showed blood flow to each of the testicles. Serial hemoglobin and hematocrit levels were taken after he was admitted. Hospitalist was consulted for medical management. His hemoglobin did drop to 9.7 on 12/15/2024 hand then 9.0 on 12/16/2024. He was remaining stable with his blood pressure and heart rate. He had received some IV fluids overnight between 12/15/2024 and 12/16/2024. Hemodilution would explain some of the drop of the hemoglobin. A repeat H&H was obtained in the afternoon on 12/16 and hemoglobin had risen to 9.2. His pain was improving and he was otherwise hemodynamically stable. Bruising was fairly stable and there was no significant abdominal or scrotal swelling. He was then discharged on 12/16/2024. Status at Discharge Functional status at discharge: independent ambulation Overall status at discharge: patient is progressing back to baseline Time Spent with Patient Time attestation: Total time spent providing and/or coordinating discharge services: Time spent: Less than 30 minutes Exam GI: Inspection: abdominal wall ecchymosis (Mostly in the left lower quadrant groin region extending down into scrotum), non-distended and incision (Intact with glue) GI Palp: Yes Soft to palpation, No Tenderness to palpation present (GI), No Guarding due to palpation present (GI) and No Rebound tenderness present Auscultation: normal bowel sounds DS: Data Data Completed and Pending Labs on day of discharge: Labs from last 24 hours 12/16/24 12/16/24 13:50 04:14 WBC 8.5 RBC 2.70 L Hgb 9.2 L 9.0 L Hct 27.8 L 26.9 L MCV 99.6 MCH 33.3 MCHC 33.5 RDW 12.3 Plt Count 168 MPV 10.8 H PT 14.5 INR 1.1 APTT 35.8 Sodium 135 L Potassium 3.7 Chloride 102 Carbon Dioxide 29 Anion Gap 4 BUN 15 Creatinine 1.04 Estim Creat Clear Calc 67 Estimated GFR > 60 Glucose 97 Calcium 8.3 L Magnesium 1.8 C-Reactive Protein 13.6 H Preliminary micro results at discharge 12/14/24 18:10 Blood Culture - Preliminary Blood 12/14/24 18:16 Blood Culture - Preliminary Blood Discharge Plan Discharge Attending physician on discharge: Saeid Uriostegui Consulting providers: Jayne Rodriguez Discharging Clinician: Carlos Morelos Patient Disposition: Home Activity: other - see discharge instructions Diet: regular Wound Care Instructions: follow printed instructions Discharge Instructions: No lifting >10 lbs May shower, no soaking under water for 2 weeks Patient Instructions: Antibiotic Form Patient Language: Upper Sorbian Stand Alone Forms: General Discharge Information Follow-up/Referrals: Saeid Uriostegui MD [Physician] - Keep Reg. Scheduled Appt. Discharge Medications: New hydrocodone-acetaminophen 5-325 mg tablet 1 tablet PO Q4H PRN (Reason: pain) Qty: 10 0RF Continued rizatriptan 10 mg tablet,disintegrating See Rx Instructions PO .COMPLEX Qty: 10 6RF Rx Instructions: take 1 tab at onset of headache; if no relief may repeat 1 tab after at least 2 hrs; max = 3 tabs/24 hr PO flecainide 50 mg tablet 100 mg PO Q12H propranolol [Inderal LA] 120 mg capsule,extended release 24 hr 120 mg PO BID Qty: 1 0RF tamsulosin 0.4 mg capsule 0.4 mg PO Q24H Rx Instructions: HS finasteride 5 mg tablet 5 mg PO DAILY Patient Comments: HS levothyroxine [Levo-T] 150 mcg tablet 175 mcg PO DAILY ibuprofen 600 mg tablet 600 mg PO Q6H PRN (Reason: pain) Qty: 14 0RF oxycodone-acetaminophen [Percocet] 5-325 mg tablet 0.5 - 1 tablet PO Q4H PRN (Reason: pain) Qty: 10 0RF triamterene-hydrochlorothiazid 37.5-25 mg tablet 1 tablet PO QAM Qty: 90 2RF simvastatin 40 mg tablet 40 mg PO HS Qty: 90 2RF meloxicam 15 mg tablet 15 mg PO DAILY Qty: 30 5RF buspirone 10 mg tablet See Rx Instructions .ROUTE .COMPLEX Qty: 270 1RF Dose Instruction: TAKE 1 TABLET BY MOUTH THREE TIMES A DAY Rx Instructions: TAKE 1 TABLET BY MOUTH THREE TIMES A DAY Date of admission: 12/14/24 16:56 Primary Care Provider: Nguyen Key Admitting Provider: Saeid Uriostegui Attending physician on admission: Saeid Uriostegui Condition: Stable
== END 2024-12-16 17:20 | disposition home or self-care (01) ==
PROVIDERS: Admitting Provider Surgery; PCP Family Medicine; Visit Provider Surgery
DX: G89.18 Other acute postprocedural pain (principal); R10.30 Lower abdominal pain, unspecified; D62 Acute posthemorrhagic anemia; I47.29 Other ventricular tachycardia; I10 Essential (primary) hypertension; R22.2 Localized swelling, mass and lump, trunk; N40.0 Benign prostatic hyperplasia without lower urinary tract symptoms; E89.0 Postprocedural hypothyroidism; E87.8 Other disorders of electrolyte and fluid balance, not elsewhere classified; E78.5 Hyperlipidemia, unspecified; F41.8 Other specified anxiety disorders; G43.909 Migraine, unspecified, not intractable, without status migrainosus; M19.90 Unspecified osteoarthritis, unspecified site; Z87.891 Personal history of nicotine dependence; Z79.899 Other long term (current) drug therapy; Z85.850 Personal history of malignant neoplasm of thyroid; Z87.19 Personal history of other diseases of the digestive system; Z98.890 Other specified postprocedural states
CPT/HCPCS: 36415; 80048; 83605; 83735; 85014; 85018; 85027; 85610; 85730; 86140; 87040; A9270; G0378; J0690; J1171; J2405; J2550; J7030; J7042